=== PATIENT | female | born 1980 | race Caucasian/White ===

== ENCOUNTER 2018-06-19 07:43 | Day surgery (SDC) | payer OTHER, SELFPAY ==
[2018-06-18 10:40] VITALS: BMI 33.6
[2018-06-19] VITALS (8 sets, daily range): BP systolic 87–114; BP diastolic 56–77; PULSE 64–80; RESP 14–20; TEMP 36–36.3; O2SAT 16–100; BMI 33.5
--- NOTE | 2018-06-19 | DI.RAD.S_ITS ---
PROCEDURE: XR ANKLE LT 2V INDICATIONS: Lt ankle pain injection TECHNIQUE: 2 views of the ankle were acquired. COMPARISON: [facility], ANKLE 3 VIEWS LEFT, 11/29/2016, 9:24. [facility], ANKLE 3 VIEWS LEFT, 07/28/2017, 15:34. FINDINGS: Multiple fluoroscopic images of the left ankle demonstrate placement of a presumed spinal needle projected over the anterior tibiotalar joint. IMPRESSION: Localization with placement of spinal needle projected over the anterior aspect of the tibiotalar joint. Dictated by: Donell Rdz [facility] Interpreted: Homer Castaneda MD on 06/19/2018 at 13:57 Approved by: Homer Castaneda M.D. on 06/19/2018 at 14:06
--- NOTE | 2018-06-19 | DI.RAD.S_ITS ---
PROCEDURE: XR ANKLE RT 2V INDICATIONS: comparison for lt ankle injection TECHNIQUE: 2 views of the ankle were acquired. COMPARISON: None. FINDINGS: Bones: No fractures or dislocations. Ankle mortise is normally aligned. No suspicious bony lesions. Soft tissues: No tibiotalar joint effusion. Achilles tendon appears normal. IMPRESSION: No fracture. No osseous lesion. If symptoms and/or clinical suspicion for pathology persists, further assessment with repeat radiographs (7-10 days) or advanced imaging (e.g. CT, MRI or bone scan) may be helpful. Dictated by: Esme Galaviz MD, PhD on 06/19/2018 at 11:18 Approved by: Esme Galaviz MD, PhD on 06/19/2018 at 11:19
[2018-06-19] MEDS: LACTATED RINGERS 1,000 ML 42 ML IV (08:29)
--- NOTE | 2018-06-19 08:59 | PM.PREOP ---
Pre-operative Note Interval Note Pre-op Check: Yes History & Physical Reviewed by Physician, Yes Exam Performed and Yes History & Physical exam performed today by Physician Changes: No
--- NOTE | 2018-06-19 09:00 | PM.HP.1 ---
History of Present Illness Date Patient Seen: 06/19/18 Time Patient Seen: 09:00 Chief complaint: injection of ankle joint [id number] Narrative: Ms. Acevedo is a 38-year-old female with chronic left ankle and foot pain. She continues to have daily pain despite conservative treatment. She has medial and lateral ankle pain and instability. She has been using the brace still has pain and additionally she has neuritis along the superficial peroneal nerve distribution today. In the past she has been noted to have symptoms consistent with CPRS type 1. He has been unable to tolerate nerve medications. Additionally she has a osteochondral lesion of the talar dome. She presents to [facility] for steroid injection under anesthesia and stress examination under anesthesia in order to obtain not stress exams 4 L and I approval for surgery. Additionally patient had a previous steroid injection under anesthesia due to her extreme anxiety and provided temporary relief for her ankle pain. Patient History Medical History Blister (Acute) Complex regional pain syndrome type 1 of left lower extremity (Acute) Left ankle instability (Acute) Neuropathy of left superficial peroneal nerve (Acute) Osteochondral lesion of talar dome (Acute) Surgical History Status post open reduction with internal fixation (ORIF) of fracture of ankle (Acute) Family & Social History Family History: Reviewed 06/19/18 by Lacie Wallace MD Social History: household members family Tobacco & Substance use: Smoking Status Former smoker Substance Use Type does not use Meds Home Medications Medication Instructions Recorded Confirmed Type tramadol 50 mg PO Q6H PRN #0 12/06/17 06/18/18 History diazepam 5 mg PO BID 06/18/18 06/19/18 History ibuprofen 800 mg PO BID 06/18/18 06/18/18 History Allergies Allergy/AdvReac Type Severity Reaction Status Date / Time gabapentin [From NEURONTIN] Allergy Unknown Unverified 06/18/18 10:45 Iodinated Contrast- Oral and Allergy Unknown Verified 06/18/18 10:45 IV Dye meloxicam [MELOXICAM] Allergy Unknown Unverified 06/18/18 10:45 hydromorphone [From DILAUDID] AdvReac Unknown Unverified 06/19/18 08:17 Review of Systems Review of Systems All systems reviewed & are unremarkable except as noted in HPI and below Exam Vital Signs (past 8 hours): - 06/19/18 08:12 Temperature 97.3 F L Pulse Rate 80 Respiratory Rate 16 Blood Pressure 114/76 Pulse Oximetry 16 L Oxygen Delivery Method Room Air Narrative Exam Narrative: Alert oriented female no acute distress fully oriented. CV exam is regular rate and rhythm. Respiratory exam lungs clear to auscultation bilaterally. Abdomen soft. Skin no lesions today. Gait antalgic on the left. Left ankle no swelling erythema or signs or symptoms of infection. Normal alignment. +anterior drawer compared to contralateral side significant apprehension to stress testing. Soft calf. In her LEs along the distribution of the superficial peroneal nerve no pain along the peroneal tendons. Assessment & Plan Plan: Assessment/Plan Narrative: Osteochondral defect talus, left neuropathy left superficial peroneal nerve. Instability left ankle joint. Status post open reduction internal fixation left ankle fracture Plan today is to proceed with a tibiotalar steroid injection under anesthesia with additional exam under anesthesia to obtain stress x-rays for comparison to contralateral side for Talar tilt anterior drawer and external rotation stress testing the patient has been unable to tolerate her in the clinic setting. Patient understands and agrees with plan the risks benefits and alternatives to the procedure were discussed in detail the patient including risk for persistent pain and infection. Patient has provided informed consent for the surgical procedure as mentioned. Time Spent With Patient Time with patient: less than 15 minutes
--- NOTE | 2018-06-19 09:05 | P.HP_ITS ---
History of Present Illness Date Patient Seen: 06/19/18 Time Patient Seen: 09:00 Chief complaint: injection of ankle joint [id number] Narrative: Ms. Acevedo is a 38-year-old female with chronic left ankle and foot pain. She continues to have daily pain despite conservative treatment. She has medial and lateral ankle pain and instability. She has been using the brace still has pain and additionally she has neuritis along the superficial peroneal nerve distribution today. In the past she has been noted to have symptoms consistent with CPRS type 1. He has been unable to tolerate nerve medications. Additionally she has a osteochondral lesion of the talar dome. She presents to [facility] for steroid injection under anesthesia and stress examination under anesthesia in order to obtain not stress exams 4 L and I approval for surgery. Additionally patient had a previous steroid injection under anesthesia due to her extreme anxiety and provided temporary relief for her ankle pain. Patient History Medical History Blister (Acute) Complex regional pain syndrome type 1 of left lower extremity (Acute) Left ankle instability (Acute) Neuropathy of left superficial peroneal nerve (Acute) Osteochondral lesion of talar dome (Acute) Surgical History Status post open reduction with internal fixation (ORIF) of fracture of ankle ( Acute) Family & Social History Family History: Reviewed 06/19/18 by Lacie Wallace MD Social History: household members family Tobacco & Substance use: Smoking Status Former smoker Substance Use Type does not use Meds Home Medications Medication Instructions Recorded Confirmed Type tramadol 50 mg PO Q6H PRN #0 12/06/17 06/18/18 History diazepam 5 mg PO BID 06/18/18 06/19/18 History ibuprofen 800 mg PO BID 06/18/18 06/18/18 History Allergies Allergy/AdvReac Type Severity Reaction Status Date / Time gabapentin [From NEURONTIN] Allergy Unknown Unverified 06/18/18 10:45 Iodinated Contrast- Oral and Allergy Unknown Verified 06/18/18 10:45 IV Dye meloxicam [MELOXICAM] Allergy Unknown Unverified 06/18/18 10:45 hydromorphone [From DILAUDID] AdvReac Unknown Unverified 06/19/18 08:17 Review of Systems Review of Systems All systems reviewed & are unremarkable except as noted in HPI and below Exam Vital Signs (past 8 hours): - 06/19/18 08:12 Temperature 97.3 F L Pulse Rate 80 Respiratory Rate 16 Blood Pressure 114/76 Pulse Oximetry 16 L Oxygen Delivery Method Room Air Narrative Exam Narrative: Alert oriented female no acute distress fully oriented. CV exam is regular rate and rhythm. Respiratory exam lungs clear to auscultation bilaterally. Abdomen soft. Skin no lesions today. Gait antalgic on the left. Left ankle no swelling erythema or signs or symptoms of infection. Normal alignment. +anterior drawer compared to contralateral side significant apprehension to stress testing. Soft calf. In her LEs along the distribution of the superficial peroneal nerve no pain along the peroneal tendons. Assessment & Plan Plan: Assessment/Plan Narrative: Osteochondral defect talus, left neuropathy left superficial peroneal nerve. Instability left ankle joint. Status post open reduction internal fixation left ankle fracture Plan today is to proceed with a tibiotalar steroid injection under anesthesia with additional exam under anesthesia to obtain stress x-rays for comparison to contralateral side for Talar tilt anterior drawer and external rotation stress testing the patient has been unable to tolerate her in the clinic setting. Patient understands and agrees with plan the risks benefits and alternatives to the procedure were discussed in detail the patient including risk for persistent pain and infection. Patient has provided informed consent for the surgical procedure as mentioned. Time Spent With Patient Time with patient: less than 15 minutes
--- NOTE | 2018-06-19 09:42 | SUR.OPER ---
Supine on padded OR bed, head on pillow, arms secured on padded arm boards at <90 degrees abduction, legs uncrossed, safety belt at thigh, tape over blanket over lower legs.
[2018-06-19] MEDS: methylPREDNISolone acet DEPO 40 MG/ML VIAL IM (09:45)
[2018-06-19] MEDS: BUPIVACAINE 0.5% (PF) VIAL 30 ML INJ (10:07)
--- NOTE | 2018-06-19 11:29 | PM.OP.1 ---
Operative Date/Time/Diagnoses Date of procedure: 06/19/18 Time of procedure: 09:15 Pre-op diagnosis: Osteochondral lesion talar dome, left ICD 10 M 89.9 Status post open reduction internal fixation left ankle a CD 10 Z96.7 Left ankle instability Neuropathy left superficial peroneal nerve ICD 10 G 57.32 Post-op diagnosis: same Procedure & Clinicians Procedure: Ankle joint injection, left CPT code 32406 Fluoroscopic guidance for injection, left CPT codes 21721-73 Exam under anesthesia, ankle, left CPT 06732 Same procedure as scheduled: Yes Indications: The patient is a 38-year-old female with a past medical history significant for a left ankle fracture status post open reduction internal fixation and then later hardware removal. She has had chronic left ankle pain complicated by nerve pain and functional instability. She has undergone extensive physical therapy, desensitization and modalities, and oral nerve medications and still has not been able to resume her normal activities. We are in progress for obtaining L and I approval for surgery based on her most recent MRI that showed a talar osteochondral lesion that is increased in size and has adjacent bone marrow edema, additionally she has evidence of chronic lateral ankle ligament injury and concern for instability. She also has some irregularity in the area of her syndesmosis without kath diastasis on imaging. She had a previous tibiotalar injection under anesthesia by another provider 6 months ago that did provide her some relief. At this point she is looking for some temporary pain relief in order to bridge her to a more definitive surgery. Additionally she has been unable to tolerate stress testing or attempted injection in the office due to anxiety and pain. To provide pain relief and to better evaluate her instability, today, she has been scheduled for exam under anesthesia as well as ankle injection under anesthesia. The risks benefits alternatives to the procedure were discussed with the patient in detail and informed consent was signed in the office. These included but were not limited to persistent pain, infection, damage to nerves and vessels, and risks associated with general anesthesia. Surgeon: Lacie Wallace Click Yes if Unassisted: Yes Anesthesia Type: Sedation Operative Notes Findings: The patient's right and left ankles were examined under anesthesia for comparison. The right ankle was taken through normal AP, mortise, lateral image and stressed with tibiotalar, anterior drawer and external rotation stress testing without any evidence of joint space widening or instability. Additionally the patient's left ankle was taken under fluoroscopic examination with standard AP, mortise, lateral imaging and tibiotalar, anterior drawer, external rotation stress testing without any significant widening for indication of overt instability. Closure Type: not applicable Specimen(s): none sent Implants & Drains: None Blood products transfused: none Procedure in detail: The patient was seen in the preoperative area the site and side of surgery were marked. The informed consent was confirmed. Patient was then brought back to the operating room and placed supine on the operative table. Sedation was administered. A formal time-out was performed confirming the patient's side and site of procedure and presence of informed consent. All equipment was accounted for. Fluoroscopy unit was brought in and 1st the comparison images of the right ankle were obtained this was an AP, mortise, lateral image and then the right ankle was taken through stress testing with talar tilt and anterior drawer and external rotation stress testing. There was no notable widening or joint space laxity noted. Next the fluoroscopy unit was brought over the left ankle again standard x-rays were obtained in the AP, mortise, lateral images. Stress testing with talar tilt, anterior drawer, external rotation stress test were then undertaken. There was no evidence of gross instability or widening with these examinations compared to the contralateral side. Next the fluoroscopy was brought into the lateral position for the left ankle. Left ankle was prepped in the standard fashion with chlorhexidine. Utilizing sterile technique the location just medial to the tibialis anterior tendon at the joint line was isolated and the skin was anesthetized with 1% lidocaine using a 25 gauge needle. A 22 gauge needle was then advanced into the tibiotalar joint and penetration was confirmed on lateral fluoro imaging. The mixture of 2 cc of 40 mg Depo-Medrol and 4 cc of 0.5% Marcaine were injected. This flowed easily into the joint without resistance. The needle was then withdrawn and a Band-Aid placed. This completed the procedure. Instruments were accounted for. The patient was awoken from anesthesia and taken PACU in good condition. There were no known immediate complications from this procedure. Complications: none Condition: stable Disposition: PACU Plan for aftercare: Activity and weight-bearing as tolerated.
== END 2018-06-19 10:15 | disposition home or self-care (01) ==
PROVIDERS: PCP Physical Medicine & Rehabilitation; Visit Provider Orthopaedic Surgery Foot and Ankle Surgery
PROC: (CPT 20606; principal; 2018-06-19 09:15)
DX: M89.9 Disorder of bone, unspecified (principal); G57.32 Lesion of lateral popliteal nerve, left lower limb; M25.372 Other instability, left ankle; Z87.891 Personal history of nicotine dependence; G90.522 Complex regional pain syndrome I of left lower limb; Z96.7 Presence of other bone and tendon implants
CPT/HCPCS: 20606; 73600; 76000; J1030; J2250; J2405; J2704; J3010

== ENCOUNTER → 2018-07-17 11:10 | Outpatient (CLI) | payer OTHER, SELFPAY ==
[2018-07-17 12:23] LABS: Add Manual Diff / Slide Review NO; Basophils Percent Auto 0.4 % (0-2); Eosinophils Percent Auto 4.2 % (2-4); Hematocrit 39.3 % (36-46); Hemoglobin 13.8 g/dL (12.0-16.0); Lymphocytes Percent Auto 33.4 % (25-40); Mean Corpuscular Hemoglobin 34.4 PG (26-34); Mean Corpuscular Volume 98.3 fL (80-100); Monocytes Percent Auto 4.5 % (3-14); Neutrophils Absolute Auto 4700 /uL (3000-5900); Neutrophils Percent Auto 57.5 % (50-75); Platelet Count 234 X10^3/uL (150-400); Red Cell Distribution Width 13.2 % (11.6-14.8); White Blood Cell Count 8.2 X10^3/uL (4.5-11.0)
== END ==
PROVIDERS: Family Provider Physical Medicine & Rehabilitation; PCP Physical Medicine & Rehabilitation; Visit Provider Orthopaedic Surgery Foot and Ankle Surgery
DX: G57.32 Lesion of lateral popliteal nerve, left lower limb (principal); G90.522 Complex regional pain syndrome I of left lower limb; M89.9 Disorder of bone, unspecified; Z01.812 Encounter for preprocedural laboratory examination; Z01.818 Encounter for other preprocedural examination
CPT/HCPCS: 36415; 85025

== ENCOUNTER 2018-11-26 14:30 | Outpatient (RCR) | payer OTHER, SELFPAY ==
--- NOTE | 2018-10-28 11:45 | PT.OIE ---
Current Diagnoses Lesion of lateral popliteal nerve, left lower limb (10/28/18) Disorder of bone, unspecified (10/28/18) Past Medical History (Last Reviewed 06/19/18 @ 09:00 by Lacie Wallace MD) Blister (Acute) Complex regional pain syndrome type 1 of left lower extremity (Acute) Left ankle instability (Acute) Neuropathy of left superficial peroneal nerve (Acute) Osteochondral lesion of talar dome (Acute) Past Surgical History (Last Reviewed 06/19/18 @ 09:00 by Lacie Wallace MD) Status post open reduction with internal fixation (ORIF) of fracture of ankle (Acute) Provider Visit Care Team Role Provider Type Quynh Campbell MD Attending Provider Physician Primary Care Provider Specialty: Physical Medicine and Rehab Address: [address] [place] [address], [facility] Email: Physical Therapy Initial Evaluation PT-OP-A Visit Information Start: 10/28/18 10:44 Freq: Status: Active Protocol: Document 10/28/18 09:55 (Rec: 10/28/18 11:44 [email or web address]) Out-Patient Physical Therapy Visit Information Visit Information Visit Type Initial Evaluation Visit Note Pt presents to clinic with her walker boot and crutches. Visit Start Time 09:55 Visit Stop Time 10:45 Total Visit Minutes 50 Visit Number 11/01 Number of FISCAL ANALYST Visits 0 Evaluation Information Evaluation Date 10/28/18 PT-OP-B Current Condition Start: 10/28/18 10:44 Freq: Status: Active Protocol: Document 10/28/18 09:55 (Rec: 10/28/18 11:44 [email or web address]) Current Condition History of Current Condition Onset Date 07/28/18 Current Complaints lesion of L talar dome, difficulty in walking, generalized muscle weakness History of Current Condition Pt is a 38 yo female with extensive surgical history of her L ankle after an accident in December,. Pt stepped into a hole with her L foot at work and fx her ankle. Pt received internal fixation 2 weeks later after the accident followed by hardware removal in Aug, 2016. However, pt reports her ankle mobility and pain did not get any better even thought a year after surgeries. Pt states that she had regional pain syndrome throughout the year and she did pass out couple times because of that. CT scan from last years showed microfracture at her left ankle joint who then underwent her 3 rd surgery in Jul, 2018 for ankle debridement. She is now followed post op protocol who is at phase 3 (week 10+) progressive ROM and strengthening. Pt reports she has been using her bootwith crutches at all times since her last surgery, and scooter sometimes for community mobiltiy. Her pain has been decreased to 5/10 compared to her first 2 surgeries. Pt currently does ankle pump, ankle alphabet and brush densitisation around surgical site everyday. She also started to wean boot to slipper occasionally at home to focus on L foot FWB as tolerated. She noticed that she has drop foot during swing phase. Pt also states that she fell couple times over the past year during amb because her walker boot was heavy and she was not paying attention to obstacles sometimes. Pt also underwent gall bladder removal surgery last week at who c/o sigificant weakness and nausea feeling from time to time. Pt will have follow up with pcp and surgeon every 6 weeks (next appt in early Nov) Treatment Goals Patient/Caregiver Goals To be able to walk without walker boot To be able to walk without any assistive device regain full ankle ROM pain free for functional activities. Prior Functional Status Baseline Function- ADL's Independent Baseline Function- Mobility Independent Personal Factors Other Personal Factors That May Effect gall bladder removal sx in Therapy/Recovery 2018 PT-OP-C Subjective Start: 10/28/18 10:44 Freq: Status: Active Protocol: Document 10/28/18 09:55 (Rec: 10/28/18 11:44 [email or web address]) OP-PT Subjective Patient Comments Patient Comments My L ankle is very sensitive to touch and it feels numb around the surgical site. i also just had gall bladder removal last week so i've been feeling very sick. However, my ankle feels pretty good overall compared to the first 2 surgeries Patient Reported Progress Improving Patient Questionnaires Foot & Ankle Ability Measure- ADL and Sports FAAM-ADL Score 2 FAAM-ADL Impairment 80 to 99% Impaired (Score 1-15 ) FAAM-Sport Score 0 FAAM-Sport Impairment 100% Impaired (Score 0) Lower Extremity Functional Scale LEFS Score 14 LEFS Impairment 80 to 99% Impaired (Score 1-16 ) OP-PT Pain Assessment Pain Assessment Grid Paper Pain Assessment Grid Completed Yes Location L ankle Pain Location Details L fibular, ankle joint, dorsum of the foot Intensity 5 Scale Used Numeric (1 - 10) Description Acute Sharp Tender Frequency Constant Pain Aggravating Factors Activity Exercise Standing Walking Pain Alleviating Factors Inactivity PT-OP-F Manual Assessment Start: 10/28/18 10:44 Freq: Status: Active Protocol: Document 10/28/18 09:55 HH (Rec: 10/28/18 11:44 [email or web address]) Manual Assessments Soft Tissue Assessment Soft Tissue Mobility Assessment Significant tenderness to light touch along ant tib, peroneal and dorsum of the L foot (pt also c/o numbness and pain upon light touch to these area) significant tenderness to pressure at L calfs and achilles Joint Mobility Assessment Joint Mobility Assessment Hypomobile at L ankle PT-OP-G Mobility & Gait Start: 10/28/18 10:44 Freq: Status: Active Protocol: Document 10/28/18 09:55 HH (Rec: 10/28/18 11:44 [email or web address]) OP Gait Assessment Assistive Devices Assistive Device Axillary Crutches Gait Deviations General Gait Pattern Antalgic Factors Limiting Gait Function Factors Limiting Gait Function Decreased Activity Tolerance Decreased Strength Limited Range of Motion Pain PT-OP-K Range of Motion Start: 10/28/18 10:44 Freq: Status: Active Protocol: Document 10/28/18 09:55 HH (Rec: 10/28/18 11:44 [email or web address]) Ankle and Foot Goniometric Range of Motion Ankle and Foot Measured in Degrees Left Active Ankle/Foot ROM WFL No Testing Position Supine Dorsiflexion with Knee Flexed 0 Dorsiflexion with Knee Extended 0 Plantarflexion 20 Inversion 10 Eversion 7 Right Active Ankle/Foot ROM WFL Yes Testing Position Supine Dorsiflexion with Knee Flexed 20 Dorsiflexion with Knee Extended 15 Plantarflexion 65 Inversion 30 Eversion 15 Ankle and Foot ROM Limitations ROM Limitations Soft Tissue Tightness Muscle Weakness Pain PT-OP-M Strength Start: 10/28/18 10:44 Freq: Status: Active Protocol: Document 10/28/18 09:55 HH (Rec: 10/28/18 11:44 [email or web address]) Hip Strength Hip Manual Muscle Testing Right Flexion (L2) 4+ Good+ Extension (S1) 4+ Good+ Abduction 4+ Good+ Adduction 4+ Good+ External Rotation 4+ Good+ Internal Rotation 4+ Good+ Left Flexion (L2) 4- Good- Extension (S1) 3+ Fair+ Abduction 3+ Fair+ Adduction 4- Good- External Rotation 3+ Fair+ Internal Rotation 3+ Fair+ Knee Strength Knee Manual Muscle Testing Right Flexion (S2) 4+ Good+ Extension (L3) 4+ Good+ Left Flexion (S2) 4- Good- Extension (L3) 4- Good- Ankle/Foot Strength Ankle and Foot Manual Muscle Testing Left Dorsiflexion (L4) 2+ Poor+ Plantarflexion (S1) 3- Fair- Inversion 2+ Poor+ Eversion (S1) 2+ Poor+ PT-OP-Q Treatments Start: 10/28/18 10:44 Freq: Status: Active Protocol: Document 10/28/18 09:55 (Rec: 10/28/18 11:44 [email or web address]) Therapeutic Exercises Supine Exercises ankle pump with tennis ball under l calf Supine Exercise Name ankle pump Side left iso ankle INV and EV Side left Resistance isometric Reps/Minutes 10 secs hold x 3 for each direction Iso ankle DF and PF Side left Resistance isometric Reps/Minutes 10 secs hold x 3 for each direction Manual Therapy Treatment Soft Tissue Mobilization 2 Body Location L gastro and achilles Mobilization Type Myofascial Release Sustained Pressure Intensity/Depth Superficial Body Position Supine 1 Body Location L ant tib and peroneal Mobilization Type Myofascial Release Sustained Pressure Intensity/Depth Superficial Body Position Supine PT-OP-T Assessment and Plan Start: 10/28/18 10:44 Freq: Status: Active Protocol: Document 10/28/18 09:55 (Rec: 10/28/18 11:44 [email or web address]) Physical Therapy Assessment Rehab Potential Rehabilitation Potential Fair Evaluation Complexity Number of Personal Factors/Comorbidities 3 or More Number of Body Systems Impaired 3 Clinical Presentation at Evaluation Evolving Impairments Impairments Activity Tolerance Balance Functional Activities Functional Mobility Gait Pain Posture ROM Sensation Soft Tissue Mobility Strength Transfers Goals 4 Impairment Gait mechanics Real Estate Branch Manager Goal (LTG) to optimize gait efficiency ( step through) with heel strike pattern during initial contact without walker boot LTG Duration 8 weeks 3 Impairment Strength Short Term Goal (STG) Increase overall L LE strength by 1/2 MMT grade grossly to increase overall tolerance for functional activities. STG Duration 4 weeks [facility] Goal (LTG) Increase overall L LE strength by 1 MMT grade grossly to increase overall tolerance for functional activities. LTG Duration 8 weeks 2 Impairment ROM Short Term Goal (STG) Increase overall L ankle ROM by 5 degrees especially DF to facilitate foot clearance during swing phase STG Duration 4 weeks [employer] Goal (LTG) Increase overall L ankle ROM by 10 degrees especially DF to facilitate foot clearance during swing phase LTG Duration 8 weeks 1 Impairment pain Short Term Goal (STG) reduce L ankle pain during mobility by 2 points to increase her overall amb distance and functional activity tolerance STG Duration 4 weeks [employer] Goal (LTG) reduce L ankle pain during mobility by 4 points to increase her overall amb distance and functional activity tolerance LTG Duration 8 weeks Assessment Summary Assessment pt is a pleasant 38yo female with extensive surgical history for her L ankle. Pt is now post op >10 weeks (phase 3 progression strengthening) However, pt states she hasnt started her phase 2 rehab (ROM phase) yet along with overall [employer] fitness and cardio training (biking with walker boot) Pt presents to clinic with the use of walker boot and axillary crutches. Pt reports her pain 5/10 constantly with decreased regional pain syndrome. she states it has been better compared to her first 2 surgeries. Upon assessment, pt presents significant ROM loss (L DF -10) along with 3+ gross LE strength which significantly decrease her foot clearance for swing phase . Pt also reports significant tenderness and numbness to light touch along surgical site and dorsum of the foot. However, pt reports reduced tenderness and pain after manual therapy at L ant tib, gastro and ankle iso exercises . HEP is given including iso ankle hold for 10 secs, calf release with tennis ball, self massage an ant tib and calf with a dough roller. Pt will benefit from skilled PT to address aforementioned impairments by manual therapy, gait training, neuromuscular reeducation, ROM, L LE strengthening, aquatic therapy and modalities in order to return to PLOF. Physical Therapy Plan Frequency and Duration Frequency of Treatment 2x/Week Duration of Treatment 8 [id number] Plan of Care Start Date 10/28/18 Plan of Care End Date 12/26/18 Therapeutic Interventions Therapeutic Interventions Aquatic Therapy Balance Training Gait Training Home Exercise Program Joint Mobilizations Manual Therapy Neuromuscular Re-education Patient/Caregiver Education Self-Care/Home Management Sensory Integration Soft Tissue Mobilization Taping Therapeutic Activities Therapeutic Exercises Modalities Cold Pack/Ice Massage Electric Stimulation Ultrasound Next Visit Focus/Plan Next Note Type Treatment Note Next Visit Plan ROM as barry distal to proximal massage for edema, modalities for pain control as needed peroneal neural glide balance/ proprioception as barry NW[employer] fitness/ cadio, biking with one leg wean boot WB ex as barry
--- NOTE | 2018-11-04 16:23 | PT.OTN ---
Current Diagnoses Lesion of lateral popliteal nerve, left lower limb (11/04/18) Disorder of bone, unspecified (11/04/18) Physical Therapy Treatment Note PT-OP-A Visit Information Start: 10/28/18 10:44 Freq: Status: Active Protocol: Document 11/04/18 14:30 HH (Rec: 11/04/18 16:22 HH [email or web address]) Out-Patient Physical Therapy Visit Information Visit Information Visit Type Treatment Note Visit Start Time 14:30 Visit Stop Time 15:15 Total Visit Minutes 45 Visit Number 2/ Number of [employer] Visits 0 PT-OP-B Current Condition Start: 10/28/18 10:44 Freq: Status: Active Protocol: Document 10/28/18 09:55 HH (Rec: 10/28/18 11:44 HH [email or web address]) Current Condition History of Current Condition Onset Date 07/28/18 Current Complaints lesion of L talar dome, difficulty in walking, generalized muscle weakness History of Current Condition Pt is a 38 yo female with extensive surgical history of her L ankle after an accident in December,. Pt stepped into a hole with her L foot at work and fx her ankle. Pt received internal fixation 2 weeks later after the accident followed by hardware removal in Aug, 2016. However, pt reports her ankle mobility and pain did not get any better even thought a year after surgeries. Pt states that she had regional pain syndrome throughout the year and she did pass out couple times because of that. CT scan from last years showed microfracture at her left ankle joint who then underwent her 3 rd surgery in Jul, 2018 for ankle debridement. She is now followed post op protocol who is at phase 3 (week 10+) progressive ROM and strengthening. Pt reports she has been using her bootwith crutches at all times since her last surgery, and scooter sometimes for community mobiltiy. Her pain has been decreased to 5/10 compared to her first 2 surgeries. Pt currently does ankle pump, ankle alphabet and brush densitisation around surgical site everyday. She also started to wean boot to slipper occasionally at home to focus on L foot FWB as tolerated. She noticed that she has drop foot during swing phase. Pt also states that she fell couple times over the past year during amb because her walker boot was heavy and she was not paying attention to obstacles sometimes. Pt also underwent gall bladder removal surgery last week at [facility] who c/o sigificant weakness and nausea feeling from time to time. Pt will have follow up with pcp and surgeon every 6 weeks (next appt in early Nov) Treatment Goals Patient/Caregiver Goals To be able to walk without walker boot To be able to walk without any assistive device regain full ankle ROM pain free for functional activities. Prior Functional Status Baseline Function- ADL's Independent Baseline Function- Mobility Independent Personal Factors Other Personal Factors That May Effect gall bladder removal sx in Therapy/Recovery 2018 PT-OP-C Subjective Start: 10/28/18 10:44 Freq: Status: Active Protocol: Document 11/04/18 14:30 HH (Rec: 11/04/18 16:22 HH [email or web address]) OP-PT Subjective Patient Comments Patient Comments Pt is compliant to HEP. Pt started to use her air cast ankle brace prescribed by her surgeon since yesterday. Pt reports she didnt feel safe to use them consistently yet. Patient Reported Progress Improving PT-OP-F Manual Assessment Start: 10/28/18 10:44 Freq: Status: Active Protocol: Document 10/28/18 09:55 HH (Rec: 10/28/18 11:44 HH [email or web address]) Manual Assessments Soft Tissue Assessment Soft Tissue Mobility Assessment Significant tenderness to light touch along ant tib, peroneal and dorsum of the L foot (pt also c/o numbness and pain upon light touch to these area) significant tenderness to pressure at L calfs and achilles Joint Mobility Assessment Joint Mobility Assessment Hypomobile at L ankle PT-OP-G Mobility & Gait Start: 10/28/18 10:44 Freq: Status: Active Protocol: Document 10/28/18 09:55 HH (Rec: 10/28/18 11:44 HH [email or web address]) OP Gait Assessment Assistive Devices Assistive Device Axillary Crutches Gait Deviations General Gait Pattern Antalgic Factors Limiting Gait Function Factors Limiting Gait Function Decreased Activity Tolerance Decreased Strength Limited Range of Motion Pain PT-OP-K Range of Motion Start: 10/28/18 10:44 Freq: Status: Active Protocol: Document 10/28/18 09:55 HH (Rec: 10/28/18 11:44 HH [email or web address]) Ankle and Foot Goniometric Range of Motion Ankle and Foot Measured in Degrees Left Active Ankle/Foot ROM WFL No Testing Position Supine Dorsiflexion with Knee Flexed 0 Dorsiflexion with Knee Extended 0 Plantarflexion 20 Inversion 10 Eversion 7 Right Active Ankle/Foot ROM WFL Yes Testing Position Supine Dorsiflexion with Knee Flexed 20 Dorsiflexion with Knee Extended 15 Plantarflexion 65 Inversion 30 Eversion 15 Ankle and Foot ROM Limitations ROM Limitations Soft Tissue Tightness Muscle Weakness Pain PT-OP-M Strength Start: 10/28/18 10:44 Freq: Status: Active Protocol: Document 10/28/18 09:55 HH (Rec: 10/28/18 11:44 [email or web address]) Hip Strength Hip Manual Muscle Testing Right Flexion (L2) 4+ Good+ Extension (S1) 4+ Good+ Abduction 4+ Good+ Adduction 4+ Good+ External Rotation 4+ Good+ Internal Rotation 4+ Good+ Left Flexion (L2) 4- Good- Extension (S1) 3+ Fair+ Abduction 3+ Fair+ Adduction 4- Good- External Rotation 3+ Fair+ Internal Rotation 3+ Fair+ Knee Strength Knee Manual Muscle Testing Right Flexion (S2) 4+ Good+ Extension (L3) 4+ Good+ Left Flexion (S2) 4- Good- Extension (L3) 4- Good- Ankle/Foot Strength Ankle and Foot Manual Muscle Testing Left Dorsiflexion (L4) 2+ Poor+ Plantarflexion (S1) 3- Fair- Inversion 2+ Poor+ Eversion (S1) 2+ Poor+ PT-OP-Q Treatments Start: 10/28/18 10:44 Freq: Status: Active Protocol: Document 11/04/18 14:30 HH (Rec: 11/04/18 16:22 [email or web address]) Cardio Equipment Recumbent Bicycle Duration (Minutes) 5 Resistance level 7 Therapeutic Exercises Supine Exercises calf stretch Reps/Minutes 10 secs x 3 ankle pump with tennis ball under l calf Supine Exercise Name ankle pump Equipment Used foam roller used iso ankle INV and EV Side left Resistance isometric Reps/Minutes 10 secs hold x 3 for each direction Iso ankle DF and PF Side left Resistance isometric Reps/Minutes 10 secs hold x 3 for each direction Sitting Exercises seated posterior chain stretch Reps/Minutes 10 mins Comments L LE knee extension, DF, cervical flexion and trunk flexion towel hand cloth examiner Sitting Exercise Name towel hand cloth examiner on the floor Equipment Used towel Manual Therapy Treatment Soft Tissue Mobilization 2 Body Location L gastro and achilles Mobilization Type Myofascial Release Sustained Pressure Intensity/Depth Superficial Body Position Supine 1 Body Location L ant tib and peroneal Mobilization Type Myofascial Release Sustained Pressure Intensity/Depth Superficial Body Position Supine PT-OP-T Assessment and Plan Start: 10/28/18 10:44 Freq: Status: Active Protocol: Document 11/04/18 14:30 HH (Rec: 11/04/18 16:22 HH [email or web address]) Physical Therapy Assessment Assessment Summary Assessment Pt did not flinch today upon manual therapy at her L peroneal and anterior tib except lateral maleoli. She does c/o tenderness during STM at calf and achilles but barry well with passive stretch with STM together. Pt also barry tx well with recumbent bike with boot on today. She also stated her toes and foot hand cloth examiner control is better than her 2 nd surgery. Reviewed post op protocol with pt as well and recommended pt to amb without crutches as tolerated. Pt also states she will cont try to wean off with her boot and use her aircast ankle brace. Physical Therapy Plan Next Visit Focus/Plan Next Note Type Treatment Note Next Visit Plan ROM as barry manual therapy neural glide gait training without AD balance/ prop as barry cardio with boot on.
--- NOTE | 2018-11-07 11:45 | PT.OTN ---
Current Diagnoses Lesion of lateral popliteal nerve, left lower limb (11/07/18) Disorder of bone, unspecified (11/07/18) Physical Therapy Treatment Note PT-OP-A Visit Information Start: 10/28/18 10:44 Freq: Status: Active Protocol: Document 11/07/18 10:45 [facility] (Rec: 11/07/18 11:45 [facility] [id number]) Out-Patient Physical Therapy Visit Information Visit Information Visit Type Treatment Note Visit Start Time 10:35 Visit Stop Time 11:20 Total Visit Minutes 45 Visit Number 3/12 Number of NEURODIAGNOSTIC TECHNICIAN Visits 0 PT-OP-B Current Condition Start: 10/28/18 10:44 Freq: Status: Active Protocol: Document 10/28/18 09:55 HH (Rec: 10/28/18 11:44 HH [email or web address]) Current Condition History of Current Condition Onset Date 07/28/18 Current Complaints lesion of L talar dome, difficulty in walking, generalized muscle weakness History of Current Condition Pt is a 38 yo female with extensive surgical history of her L ankle after an accident in December,. Pt stepped into a hole with her L foot at work and fx her ankle. Pt received internal fixation 2 weeks later after the accident followed by hardware removal in Aug, 2016. However, pt reports her ankle mobility and pain did not get any better even thought a year after surgeries. Pt states that she had regional pain syndrome throughout the year and she did pass out couple times because of that. CT scan from last years showed microfracture at her left ankle joint who then underwent her 3 rd surgery in Jul, 2018 for ankle debridement. She is now followed post op protocol who is at phase 3 (week 10+) progressive ROM and strengthening. Pt reports she has been using her bootwith crutches at all times since her last surgery, and scooter sometimes for community mobiltiy. Her pain has been decreased to 5/10 compared to her first 2 surgeries. Pt currently does ankle pump, ankle alphabet and brush densitisation around surgical site everyday. She also started to wean boot to slipper occasionally at home to focus on L foot FWB as tolerated. She noticed that she has drop foot during swing phase. Pt also states that she fell couple times over the past year during amb because her walker boot was heavy and she was not paying attention to obstacles sometimes. Pt also underwent gall bladder removal surgery last week at who c/o sigificant weakness and nausea feeling from time to time. Pt will have follow up with pcp and surgeon every 6 weeks (next appt in early Nov) Treatment Goals Patient/Caregiver Goals To be able to walk without walker boot To be able to walk without any assistive device regain full ankle ROM pain free for functional activities. Prior Functional Status Baseline Function- ADL's Independent Baseline Function- Mobility Independent Personal Factors Other Personal Factors That May Effect gall bladder removal sx in Therapy/Recovery 2018 PT-OP-C Subjective Start: 10/28/18 10:44 Freq: Status: Active Protocol: Document 11/07/18 10:45 [facility] (Rec: 11/07/18 11:45 [facility] [id number]) OP-PT Subjective Patient Comments Patient Comments cleared her yesterday to be out of the boot at all times. Pt reports she is sore today. PT-OP-F Manual Assessment Start: 10/28/18 10:44 Freq: Status: Active Protocol: Document 10/28/18 09:55 (Rec: 10/28/18 11:44 [email or web address]) Manual Assessments Soft Tissue Assessment Soft Tissue Mobility Assessment Significant tenderness to light touch along ant tib, peroneal and dorsum of the L foot (pt also c/o numbness and pain upon light touch to these area) significant tenderness to pressure at L calfs and achilles Joint Mobility Assessment Joint Mobility Assessment Hypomobile at L ankle PT-OP-G Mobility & Gait Start: 10/28/18 10:44 Freq: Status: Active Protocol: Document 10/28/18 09:55 (Rec: 10/28/18 11:44 [email or web address]) OP Gait Assessment Assistive Devices Assistive Device Axillary Crutches Gait Deviations General Gait Pattern Antalgic Factors Limiting Gait Function Factors Limiting Gait Function Decreased Activity Tolerance Decreased Strength Limited Range of Motion Pain PT-OP-K Range of Motion Start: 10/28/18 10:44 Freq: Status: Active Protocol: Document 10/28/18 09:55 (Rec: 10/28/18 11:44 HH [email or web address]) Ankle and Foot Goniometric Range of Motion Ankle and Foot Measured in Degrees Left Active Ankle/Foot ROM WFL No Testing Position Supine Dorsiflexion with Knee Flexed 0 Dorsiflexion with Knee Extended 0 Plantarflexion 20 Inversion 10 Eversion 7 Right Active Ankle/Foot ROM WFL Yes Testing Position Supine Dorsiflexion with Knee Flexed 20 Dorsiflexion with Knee Extended 15 Plantarflexion 65 Inversion 30 Eversion 15 Ankle and Foot ROM Limitations ROM Limitations Soft Tissue Tightness Muscle Weakness Pain PT-OP-M Strength Start: 10/28/18 10:44 Freq: Status: Active Protocol: Document 10/28/18 09:55 HH (Rec: 10/28/18 11:44 [email or web address]) Hip Strength Hip Manual Muscle Testing Right Flexion (L2) 4+ Good+ Extension (S1) 4+ Good+ Abduction 4+ Good+ Adduction 4+ Good+ External Rotation 4+ Good+ Internal Rotation 4+ Good+ Left Flexion (L2) 4- Good- Extension (S1) 3+ Fair+ Abduction 3+ Fair+ Adduction 4- Good- External Rotation 3+ Fair+ Internal Rotation 3+ Fair+ Knee Strength Knee Manual Muscle Testing Right Flexion (S2) 4+ Good+ Extension (L3) 4+ Good+ Left Flexion (S2) 4- Good- Extension (L3) 4- Good- Ankle/Foot Strength Ankle and Foot Manual Muscle Testing Left Dorsiflexion (L4) 2+ Poor+ Plantarflexion (S1) 3- Fair- Inversion 2+ Poor+ Eversion (S1) 2+ Poor+ PT-OP-Q Treatments Start: 10/28/18 10:44 Freq: Status: Active Protocol: Document 11/07/18 10:45 [facility] (Rec: 11/07/18 11:45 [facility] [id number]) Cardio Equipment Recumbent Elliptical ([employer]) Duration (Minutes) 8 Resistance 2 Seat Position 8 Therapeutic Exercises Sitting Exercises stretches Sitting Exercise Name PF, inversion Side left Reps/Minutes 30 sec holds Standing Exercises NBOS Standing Exercise Name EC Side bilateral Reps/Minutes 30 sec gastroc & soleus stretches Standing Exercise Name gastroc/soleus stretch Reps/Minutes 45 sec holds Gait Training Gait Activity even steps Description even steps with cane Manual Therapy Treatment Soft Tissue Mobilization scar tissue Body Location scar tissue Mobilization Type Myofascial Release Comments 2 ant scars ant gaytan & ankle Body Location ant gaytan/ankle & foot Mobilization Type Myofascial Release Comments w/APS PT-OP-T Assessment and Plan Start: 10/28/18 10:44 Freq: Status: Active Protocol: Document 11/07/18 10:45 [facility] (Rec: 11/07/18 11:45 [facility] [id number]) Physical Therapy Assessment Goals 4 Impairment Gait mechanics Longterm Goal (LTG) to optimize gait efficiency ( step through) with heel strike pattern during initial contact without walker boot LTG Duration 8 weeks 3 Impairment Strength Short Term Goal (STG) Increase overall L LE strength by 1/2 MMT grade grossly to increase overall tolerance for functional activities. STG Duration 4 weeks Staff Certified Nurse Midwife Goal (LTG) Increase overall L LE strength by 1 MMT grade grossly to increase overall tolerance for functional activities. LTG Duration 8 weeks 2 Impairment ROM Short Term Goal (STG) Increase overall L ankle ROM by 5 degrees especially DF to facilitate foot clearance during swing phase STG Duration 4 weeks Staff Certified Nurse Midwife Goal (LTG) Increase overall L ankle ROM by 10 degrees especially DF to facilitate foot clearance during swing phase LTG Duration 8 weeks 1 Impairment pain Short Term Goal (STG) reduce L ankle pain during mobility by 2 points to increase her overall amb distance and functional activity tolerance STG Duration 4 weeks Staff Certified Nurse Midwife Goal (LTG) reduce L ankle pain during mobility by 4 points to increase her overall amb distance and functional activity tolerance LTG Duration 8 weeks Assessment Summary Assessment After scar tissue mobilization and MFR, pt was able to feel stretches in appropriate mm with stretches. Pt able to tolerate stretches without inc pain. Physical Therapy Plan Frequency and Duration Frequency of Treatment 2x/Week Duration of Treatment 8 [email or web address] Plan of Care Start Date 10/28/18 Plan of Care End Date 12/26/18 Next Visit Focus/Plan Next Note Type Treatment Note Next Visit Plan Advance ROM as tolerated, manual therapy for fascial and scar tissue release. balance as tolerated.
--- NOTE | 2018-11-11 13:03 | PT.OTN ---
Current Diagnoses Lesion of lateral popliteal nerve, left lower limb (11/11/18) Disorder of bone, unspecified (11/11/18) Physical Therapy Treatment Note PT-OP-A Visit Information Start: 10/28/18 10:44 Freq: Status: Active Protocol: Document 11/11/18 09:45 HH (Rec: 11/11/18 11:19 HH [email or web address]) Out-Patient Physical Therapy Visit Information Visit Information Visit Type Treatment Note Visit Start Time 09:45 Visit Stop Time 10:30 Total Visit Minutes 45 Visit Number 4/ PT-OP-B Current Condition Start: 10/28/18 10:44 Freq: Status: Active Protocol: Document 10/28/18 09:55 HH (Rec: 10/28/18 11:44 HH [email or web address]) Current Condition History of Current Condition Onset Date 07/28/18 Current Complaints lesion of L talar dome, difficulty in walking, generalized muscle weakness History of Current Condition Pt is a 38 yo female with extensive surgical history of her L ankle after an accident in December,. Pt stepped into a hole with her L foot at work and fx her ankle. Pt received internal fixation 2 weeks later after the accident followed by hardware removal in Aug, 2016. However, pt reports her ankle mobility and pain did not get any better even thought a year after surgeries. Pt states that she had regional pain syndrome throughout the year and she did pass out couple times because of that. CT scan from last years showed microfracture at her left ankle joint who then underwent her 3 rd surgery in Jul, 2018 for ankle debridement. She is now followed post op protocol who is at phase 3 (week 10+) progressive ROM and strengthening. Pt reports she has been using her bootwith crutches at all times since her last surgery, and scooter sometimes for community mobiltiy. Her pain has been decreased to 5/10 compared to her first 2 surgeries. Pt currently does ankle pump, ankle alphabet and brush densitisation around surgical site everyday. She also started to wean boot to slipper occasionally at home to focus on L foot FWB as tolerated. She noticed that she has drop foot during swing phase. Pt also states that she fell couple times over the past year during amb because her walker boot was heavy and she was not paying attention to obstacles sometimes. Pt also underwent gall bladder removal surgery last week at who c/o sigificant weakness and nausea feeling from time to time. Pt will have follow up with pcp and surgeon every 6 weeks (next appt in early Nov) Treatment Goals Patient/Caregiver Goals To be able to walk without walker boot To be able to walk without any assistive device regain full ankle ROM pain free for functional activities. Prior Functional Status Baseline Function- ADL's Independent Baseline Function- Mobility Independent Personal Factors Other Personal Factors That May Effect gall bladder removal sx in Therapy/Recovery 2018 PT-OP-C Subjective Start: 10/28/18 10:44 Freq: Status: Active Protocol: Document 11/11/18 09:45 HH (Rec: 11/11/18 11:19 HH [email or web address]) OP-PT Subjective Patient Comments Patient Comments 'I ve been walking with the cane since last week but it's getting sore at the end of the day. I ve been doing my HEP too especially the stretches. I almost fell yesterday because i dragged my toes. My pain is 4/10 most of the time. Patient Reported Progress Improving OP-PT Pain Assessment Location L ankle Intensity 4 Scale Used Numeric (1 - 10) Description With Movement Pain Aggravating Factors Walking PT-OP-F Manual Assessment Start: 10/28/18 10:44 Freq: Status: Active Protocol: Document 10/28/18 09:55 HH (Rec: 10/28/18 11:44 HH [email or web address]) Manual Assessments Soft Tissue Assessment Soft Tissue Mobility Assessment Significant tenderness to light touch along ant tib, peroneal and dorsum of the L foot (pt also c/o numbness and pain upon light touch to these area) significant tenderness to pressure at L calfs and achilles Joint Mobility Assessment Joint Mobility Assessment Hypomobile at L ankle PT-OP-G Mobility & Gait Start: 10/28/18 10:44 Freq: Status: Active Protocol: Document 10/28/18 09:55 HH (Rec: 10/28/18 11:44 HH [email or web address]) OP Gait Assessment Assistive Devices Assistive Device Axillary Crutches Gait Deviations General Gait Pattern Antalgic Factors Limiting Gait Function Factors Limiting Gait Function Decreased Activity Tolerance Decreased Strength Limited Range of Motion Pain PT-OP-K Range of Motion Start: 10/28/18 10:44 Freq: Status: Active Protocol: Document 10/28/18 09:55 HH (Rec: 10/28/18 11:44 [email or web address]) Ankle and Foot Goniometric Range of Motion Ankle and Foot Measured in Degrees Left Active Ankle/Foot ROM WFL No Testing Position Supine Dorsiflexion with Knee Flexed 0 Dorsiflexion with Knee Extended 0 Plantarflexion 20 Inversion 10 Eversion 7 Right Active Ankle/Foot ROM WFL Yes Testing Position Supine Dorsiflexion with Knee Flexed 20 Dorsiflexion with Knee Extended 15 Plantarflexion 65 Inversion 30 Eversion 15 Ankle and Foot ROM Limitations ROM Limitations Soft Tissue Tightness Muscle Weakness Pain PT-OP-M Strength Start: 10/28/18 10:44 Freq: Status: Active Protocol: Document 10/28/18 09:55 (Rec: 10/28/18 11:44 [email or web address]) Hip Strength Hip Manual Muscle Testing Right Flexion (L2) 4+ Good+ Extension (S1) 4+ Good+ Abduction 4+ Good+ Adduction 4+ Good+ External Rotation 4+ Good+ Internal Rotation 4+ Good+ Left Flexion (L2) 4- Good- Extension (S1) 3+ Fair+ Abduction 3+ Fair+ Adduction 4- Good- External Rotation 3+ Fair+ Internal Rotation 3+ Fair+ Knee Strength Knee Manual Muscle Testing Right Flexion (S2) 4+ Good+ Extension (L3) 4+ Good+ Left Flexion (S2) 4- Good- Extension (L3) 4- Good- Ankle/Foot Strength Ankle and Foot Manual Muscle Testing Left Dorsiflexion (L4) 2+ Poor+ Plantarflexion (S1) 3- Fair- Inversion 2+ Poor+ Eversion (S1) 2+ Poor+ PT-OP-Q Treatments Start: 10/28/18 10:44 Freq: Status: Active Protocol: Document 11/11/18 09:45 (Rec: 11/11/18 13:03 [email or web address]) Cardio Equipment Recumbent Stepper ([employer]) Duration (Minutes) 5 Therapeutic Exercises Supine Exercises toe general passenger agent Reps/Minutes 3 mins calf stretch Reps/Minutes 10 secs x 3 Standing Exercises L LE initial contact Equipment Used yoga cordelia and with sock only Comments to facilitate L knee extension and heel contact L LE weight acceptance Standing Exercise Name R step over Equipment Used yoga cordelia and with sock only Comments to facilitate single leg weight acceptance gastroc & soleus stretches Standing Exercise Name gastroc/soleus stretch Reps/Minutes 45 sec holds Gait Training Gait Activity step over with R LE Device Used grab bar Surface yoga cordelia Comments to facilitate single leg weight acceptance even steps Description even steps with cane Manual Therapy Treatment Soft Tissue Mobilization scar tissue Body Location scar tissue Mobilization Type Myofascial Release Comments 2 ant scars 2 Body Location L gastro and achilles Mobilization Type Myofascial Release Sustained Pressure Intensity/Depth Superficial Body Position Supine 1 Body Location L ant tib and peroneal Mobilization Type Myofascial Release Sustained Pressure Intensity/Depth Superficial Body Position Supine PT-OP-T Assessment and Plan Start: 10/28/18 10:44 Freq: Status: Active Protocol: Document 11/11/18 09:45 HH (Rec: 11/11/18 11:19 [email or web address]) Physical Therapy Assessment Assessment Summary Assessment Pt amb with a L moderate antalgic gait with significant l knee flexion during initial contact today upon assessment . pt barry tx very well with the use of yoga mat for gait training (for shock absorption ) and able to perform heel strike with knee extension. pt states i feel much more confortable for my knee and ankle when i walk now. Physical Therapy Plan Next Visit Focus/Plan Next Note Type Treatment Note Next Visit Plan reassess gait mechanics cont gait training with initial contact and single leg balance (can use yoga mat for reduce impact) and weight acceptance. ROM as barry balance training as barry
--- NOTE | 2018-11-14 11:25 | PT.OTN ---
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 Pt stepped into a hole with her L foot at work and fx her ankle. Pt received internal fixation 2 weeks later after the accident followed by hardware removal in Aug, 2016. However, pt reports her ankle mobility and pain did not get any better even thought a year after surgeries. Pt states that she had regional pain syndrome throughout the year and she did pass out couple times because of that. CT scan from last years showed microfracture at her left ankle joint who then underwent her 3 rd surgery in Jul, 2018 for ankle debridement. She is now followed post op protocol who is at phase 3 (week 10+) progressive ROM and strengthening. Pt reports she has been using her bootwith crutches at all times since her last surgery, and scooter sometimes for community mobiltiy. Her pain has been decreased to 5/10 compared to her first 2 surgeries. Pt currently does ankle pump, ankle alphabet and brush densitisation around surgical site everyday. She also started to wean boot to slipper occasionally at home to focus on L foot FWB as tolerated. She noticed that she has drop foot during swing phase. Pt also states that she fell couple times over the past year during amb because her walker boot was heavy and she was not paying attention to obstacles sometimes. Pt also underwent gall bladder removal surgery last week at who c/o sigificant weakness and nausea feeling from time to time. Pt will have follow up with pcp and surgeon every 6 weeks (next appt in early Nov) Treatment Goals Patient/Caregiver Goals To be able to walk without walker boot To be able to walk without any assistive device regain full ankle ROM pain free for functional activities. Prior Functional Status Baseline Function- ADL's Independent Baseline Function- Mobility Independent Personal Factors Other Personal Factors That May Effect gall bladder removal sx in Therapy/Recovery 2018 PT-OP-C Subjective Start: 10/28/18 10:44 Freq: Status: Active Protocol: Document 11/14/18 10:31 [facility] (Rec: 11/14/18 11:25 [facility] [id number]) OP-PT Subjective Patient Comments Patient Comments Pt reports compliance with exercises from PT last session . Reports she has been working on her gait and stretching PT-OP-F Manual Assessment Start: 10/28/18 10:44 Freq: Status: Active Protocol: Document 10/28/18 09:55 (Rec: 10/28/18 11:44 [email or web address]) Manual Assessments Soft Tissue Assessment Soft Tissue Mobility Assessment Significant tenderness to light touch along ant tib, peroneal and dorsum of the L foot (pt also c/o numbness and pain upon light touch to these area) significant tenderness to pressure at L calfs and achilles Joint Mobility Assessment Joint Mobility Assessment Hypomobile at L ankle PT-OP-G Mobility & Gait Start: 10/28/18 10:44 Freq: Status: Active Protocol: Document 10/28/18 09:55 (Rec: 10/28/18 11:44 [email or web address]) OP Gait Assessment Assistive Devices Assistive Device Axillary Crutches Gait Deviations General Gait Pattern Antalgic Factors Limiting Gait Function Factors Limiting Gait Function Decreased Activity Tolerance Decreased Strength Limited Range of Motion Pain PT-OP-K Range of Motion Start: 10/28/18 10:44 Freq: Status: Active Protocol: Document 10/28/18 09:55 (Rec: 10/28/18 11:44 [facility] [email or web address]) Ankle and Foot Goniometric Range of Motion Ankle and Foot Measured in Degrees Left Active Ankle/Foot ROM WFL No Testing Position Supine Dorsiflexion with Knee Flexed 0 Dorsiflexion with Knee Extended 0 Plantarflexion 20 Inversion 10 Eversion 7 Right Active Ankle/Foot ROM WFL Yes Testing Position Supine Dorsiflexion with Knee Flexed 20 Dorsiflexion with Knee Extended 15 Plantarflexion 65 Inversion 30 Eversion 15 Ankle and Foot ROM Limitations ROM Limitations Soft Tissue Tightness Muscle Weakness Pain PT-OP-M Strength Start: 10/28/18 10:44 Freq: Status: Active Protocol: Document 10/28/18 09:55 [facility] (Rec: 10/28/18 11:44 [email or web address]) Hip Strength Hip Manual Muscle Testing Right Flexion (L2) 4+ Good+ Extension (S1) 4+ Good+ Abduction 4+ Good+ Adduction 4+ Good+ External Rotation 4+ Good+ Internal Rotation 4+ Good+ Left Flexion (L2) 4- Good- Extension (S1) 3+ Fair+ Abduction 3+ Fair+ Adduction 4- Good- External Rotation 3+ Fair+ Internal Rotation 3+ Fair+ Knee Strength Knee Manual Muscle Testing Right Flexion (S2) 4+ Good+ Extension (L3) 4+ Good+ Left Flexion (S2) 4- Good- Extension (L3) 4- Good- Ankle/Foot Strength Ankle and Foot Manual Muscle Testing Left Dorsiflexion (L4) 2+ Poor+ Plantarflexion (S1) 3- Fair- Inversion 2+ Poor+ Eversion (S1) 2+ Poor+ PT-OP-Q Treatments Start: 10/28/18 10:44 Freq: Status: Active Protocol: Document 11/14/18 10:31 [facility] (Rec: 11/14/18 11:25 [facility] [id number]) Cardio Equipment Recumbent Stepper (Sci-Fit) Duration (Minutes) 5 Resistance 1.5 Seat Position 11 Therapeutic Exercises Supine Exercises 4 way tband ankle Supine Exercise Name inversion, eversion, PF, DF Side left Reps/Minutes 5-10 reps to fatigue Gait Training Gait Activity SLS Description SLS on L Comments w/alt hip flex for focus on stance phase even steps Description work on even steps w/fwd wt shift Comments w/ parallell bars on yoga mat to cane on ground Manual Therapy Treatment Soft Tissue Mobilization scar tissue Body Location scar tissue Mobilization Type Myofascial Release Comments 2 ant scars ant gaytan & ankle Body Location ant gaytan/ankle & foot Mobilization Type Myofascial Release Comments w/APS 2 Body Location L gastro and achilles Mobilization Type Myofascial Release Sustained Pressure Intensity/Depth Superficial Body Position Supine PT-OP-T Assessment and Plan Start: 10/28/18 10:44 Freq: Status: Active Protocol: Document 11/14/18 10:31 [facility] (Rec: 11/14/18 11:25 [facility] [id number]) Physical Therapy Assessment Goals 4 Impairment Gait mechanics Mainstreaming Facilitator Goal (LTG) to optimize gait efficiency ( step through) with heel strike pattern during initial contact without walker boot LTG Duration 8 weeks 3 Impairment Strength Short Term Goal (STG) Increase overall L LE strength by 1/2 MMT grade grossly to increase overall tolerance for functional activities. STG Duration 4 weeks Mcc Goal (LTG) Increase overall L LE strength by 1 MMT grade grossly to increase overall tolerance for functional activities. LTG Duration 8 weeks 2 Impairment ROM Short Term Goal (STG) Increase overall L ankle ROM by 5 degrees especially DF to facilitate foot clearance during swing phase STG Duration 4 weeks Mainstreaming Facilitator Goal (LTG) Increase overall L ankle ROM by 10 degrees especially DF to facilitate foot clearance during swing phase LTG Duration 8 weeks 1 Impairment pain Short Term Goal (STG) reduce L ankle pain during mobility by 2 points to increase her overall amb distance and functional activity tolerance STG Duration 4 weeks Mainstreaming Facilitator Goal (LTG) reduce L ankle pain during mobility by 4 points to increase her overall amb distance and functional activity tolerance LTG Duration 8 weeks Assessment Summary Assessment Pt improved with gait mechanics and noted less hip pain with gait when working on appropriate wt shift. She has significant dec mobility of achilles and calf. She had difficulty with tband exercises. Physical Therapy Plan Frequency and Duration Frequency of Treatment 2x/Week Duration of Treatment 8 weeeks Plan of Care Start Date 10/28/18 Plan of Care End Date 12/26/18 Next Visit Focus/Plan Next Note Type Treatment Note Next Visit Plan cont to work on wt acceptance and balance/strength training as tolerated
--- NOTE | 2018-11-18 10:34 | PT.OTN ---
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 Pt stepped into a hole with her L foot at work and fx her ankle. Pt received internal fixation 2 weeks later after the accident followed by hardware removal in Aug, 2016. However, pt reports her ankle mobility and pain did not get any better even thought a year after surgeries. Pt states that she had regional pain syndrome throughout the year and she did pass out couple times because of that. CT scan from last years showed microfracture at her left ankle joint who then underwent her 3 rd surgery in Jul, 2018 for ankle debridement. She is now followed post op protocol who is at phase 3 (week 10+) progressive ROM and strengthening. Pt reports she has been using her bootwith crutches at all times since her last surgery, and scooter sometimes for community mobiltiy. Her pain has been decreased to 5/10 compared to her first 2 surgeries. Pt currently does ankle pump, ankle alphabet and brush densitisation around surgical site everyday. She also started to wean boot to slipper occasionally at home to focus on L foot FWB as tolerated. She noticed that she has drop foot during swing phase. Pt also states that she fell couple times over the past year during amb because her walker boot was heavy and she was not paying attention to obstacles sometimes. Pt also underwent gall bladder removal surgery last week at who c/o sigificant weakness and nausea feeling from time to time. Pt will have follow up with pcp and surgeon every 6 weeks (next appt in early Nov) Treatment Goals Patient/Caregiver Goals To be able to walk without walker boot To be able to walk without any assistive device regain full ankle ROM pain free for functional activities. Prior Functional Status Baseline Function- ADL's Independent Baseline Function- Mobility Independent Personal Factors Other Personal Factors That May Effect gall bladder removal sx in Therapy/Recovery 2018 PT-OP-C Subjective Start: 10/28/18 10:44 Freq: Status: Active Protocol: Document 11/18/18 09:09 [facility] (Rec: 11/18/18 10:34 [facility] [id number]) OP-PT Subjective Patient Comments Patient Comments Reports hip is feeling better w/ walking more typical. Swelling notedw/ activity inc PT-OP-F Manual Assessment Start: 10/28/18 10:44 Freq: Status: Active Protocol: Document 10/28/18 09:55 (Rec: 10/28/18 11:44 [email or web address]) Manual Assessments Soft Tissue Assessment Soft Tissue Mobility Assessment Significant tenderness to light touch along ant tib, peroneal and dorsum of the L foot (pt also c/o numbness and pain upon light touch to these area) significant tenderness to pressure at L calfs and achilles Joint Mobility Assessment Joint Mobility Assessment Hypomobile at L ankle PT-OP-G Mobility & Gait Start: 10/28/18 10:44 Freq: Status: Active Protocol: Document 10/28/18 09:55 (Rec: 10/28/18 11:44 [email or web address]) OP Gait Assessment Assistive Devices Assistive Device Axillary Crutches Gait Deviations General Gait Pattern Antalgic Factors Limiting Gait Function Factors Limiting Gait Function Decreased Activity Tolerance Decreased Strength Limited Range of Motion Pain PT-OP-K Range of Motion Start: 10/28/18 10:44 Freq: Status: Active Protocol: Document 10/28/18 09:55 [facility] (Rec: 10/28/18 11:44 HH [email or web address]) Ankle and Foot Goniometric Range of Motion Ankle and Foot Measured in Degrees Left Active Ankle/Foot ROM WFL No Testing Position Supine Dorsiflexion with Knee Flexed 0 Dorsiflexion with Knee Extended 0 Plantarflexion 20 Inversion 10 Eversion 7 Right Active Ankle/Foot ROM WFL Yes Testing Position Supine Dorsiflexion with Knee Flexed 20 Dorsiflexion with Knee Extended 15 Plantarflexion 65 Inversion 30 Eversion 15 Ankle and Foot ROM Limitations ROM Limitations Soft Tissue Tightness Muscle Weakness Pain PT-OP-M Strength Start: 10/28/18 10:44 Freq: Status: Active Protocol: Document 10/28/18 09:55 [facility] (Rec: 10/28/18 11:44 [email or web address]) Hip Strength Hip Manual Muscle Testing Right Flexion (L2) 4+ Good+ Extension (S1) 4+ Good+ Abduction 4+ Good+ Adduction 4+ Good+ External Rotation 4+ Good+ Internal Rotation 4+ Good+ Left Flexion (L2) 4- Good- Extension (S1) 3+ Fair+ Abduction 3+ Fair+ Adduction 4- Good- External Rotation 3+ Fair+ Internal Rotation 3+ Fair+ Knee Strength Knee Manual Muscle Testing Right Flexion (S2) 4+ Good+ Extension (L3) 4+ Good+ Left Flexion (S2) 4- Good- Extension (L3) 4- Good- Ankle/Foot Strength Ankle and Foot Manual Muscle Testing Left Dorsiflexion (L4) 2+ Poor+ Plantarflexion (S1) 3- Fair- Inversion 2+ Poor+ Eversion (S1) 2+ Poor+ PT-OP-Q Treatments Start: 10/28/18 10:44 Freq: Status: Active Protocol: Document 11/18/18 09:09 [facility] (Rec: 11/18/18 10:34 [facility] [id number]) Cardio Equipment Recumbent Elliptical (Biodex) Duration (Minutes) 6 Resistance 1 Seat Position 7 Therapeutic Exercises Supine Exercises eccetric DF Supine Exercise Name PT push to full DF then eccentric lowering Reps/Minutes [address] ankle Supine Exercise Name inversion, eversion, PF, DF Side left Reps/Minutes 5-10 reps to fatigue Manual Therapy Treatment Soft Tissue Mobilization scar tissue Body Location scar tissue Mobilization Type Myofascial Release Comments 2 ant scars ant gaytan & ankle Body Location ant gaytan/ankle & foot Mobilization Type Myofascial Release Comments w/APS 2 Body Location L gastro and achilles Mobilization Type Myofascial Release Sustained Pressure Intensity/Depth Superficial Body Position Supine Neuro Re-Education Treatment Balance Activities fwdecember Details december Reps/Duration 4x20ft tandem Details tandem stance & walk PT-OP-T Assessment and Plan Start: 10/28/18 10:44 Freq: Status: Active Protocol: Document 11/18/18 09:09 [facility] (Rec: 11/18/18 10:34 [facility] [id number]) Physical Therapy Assessment Goals 4 Impairment Gait mechanics Assisted Goal (LTG) to optimize gait efficiency ( step through) with heel strike pattern during initial contact without walker boot LTG Duration 8 weeks 3 Impairment Strength Short Term Goal (STG) Increase overall L LE strength by 1/2 MMT grade grossly to increase overall tolerance for functional activities. STG Duration 4 weeks Centerless Grinder Tender Goal (LTG) Increase overall L LE strength by 1 MMT grade grossly to increase overall tolerance for functional activities. LTG Duration 8 weeks 2 Impairment ROM Short Term Goal (STG) Increase overall L ankle ROM by 5 degrees especially DF to facilitate foot clearance during swing phase STG Duration 4 weeks Assisted Goal (LTG) Increase overall L ankle ROM by 10 degrees especially DF to facilitate foot clearance during swing phase LTG Duration 8 weeks 1 Impairment pain Short Term Goal (STG) reduce L ankle pain during mobility by 2 points to increase her overall amb distance and functional activity tolerance STG Duration 4 weeks Assisted Goal (LTG) reduce L ankle pain during mobility by 4 points to increase her overall amb distance and functional activity tolerance LTG Duration 8 weeks Assessment Summary Assessment Pt able to get to neutral passively with DF but about 10 deg lacking actively. pt encouraged to cont to work DF strength. Overall, balance and gait improving but cont to have dec push off with gait. Physical Therapy Plan Frequency and Duration Frequency of Treatment 2x/Week Duration of Treatment 8 weeeks Plan of Care Start Date 10/28/18 Plan of Care End Date 12/26/18 Next Visit Focus/Plan Next Note Type Treatment Note Next Visit Plan balance board & advance balance/strength
--- NOTE | 2018-11-20 09:42 | PT.OTN ---
Current Diagnoses Lesion of lateral popliteal nerve, left lower limb (11/20/18) Disorder of bone, unspecified (11/20/18) Physical Therapy Treatment Note PT-OP-A Visit Information Start: 10/28/18 10:44 Freq: Status: Active Protocol: Document 11/20/18 08:44 LR (Rec: 11/20/18 09:42 [facility] [id number]) Out-Patient Physical Therapy Visit Information Visit Information Visit Type Treatment Note Visit Start Time 08:55 Visit Stop Time 09:40 Total Visit Minutes 45 Visit Number 05/01 Number of NEUROPHYSIOLOGICAL TECHNICIAN Visits 0 PT-OP-B Current Condition Start: 10/28/18 10:44 Freq: Status: Active Protocol: Document 10/28/18 09:55 HH (Rec: 10/28/18 11:44 HH [email or web address]) Current Condition History of Current Condition Onset Date 07/28/18 Current Complaints lesion of L talar dome, difficulty in walking, generalized muscle weakness History of Current Condition Pt is a 38 yo female with extensive surgical history of her L ankle after an accident in December,. Pt stepped into a hole with her L foot at work and fx her ankle. Pt received internal fixation 2 weeks later after the accident followed by hardware removal in Aug, 2016. However, pt reports her ankle mobility and pain did not get any better even thought a year after surgeries. Pt states that she had regional pain syndrome throughout the year and she did pass out couple times because of that. CT scan from last years showed microfracture at her left ankle joint who then underwent her 3 rd surgery in Jul, 2018 for ankle debridement. She is now followed post op protocol who is at phase 3 (week 10+) progressive ROM and strengthening. Pt reports she has been using her bootwith crutches at all times since her last surgery, and scooter sometimes for community mobiltiy. Her pain has been decreased to 5/10 compared to her first 2 surgeries. Pt currently does ankle pump, ankle alphabet and brush densitisation around surgical site everyday. She also started to wean boot to slipper occasionally at home to focus on L foot FWB as tolerated. She noticed that she has drop foot during swing phase. Pt also states that she fell couple times over the past year during amb because her walker boot was heavy and she was not paying attention to obstacles sometimes. Pt also underwent gall bladder removal surgery last week at who c/o sigificant weakness and nausea feeling from time to time. Pt will have follow up with pcp and surgeon every 6 weeks (next appt in early Nov) Treatment Goals Patient/Caregiver Goals To be able to walk without walker boot To be able to walk without any assistive device regain full ankle ROM pain free for functional activities. Prior Functional Status Baseline Function- ADL's Independent Baseline Function- Mobility Independent Personal Factors Other Personal Factors That May Effect gall bladder removal sx in Therapy/Recovery 2018 PT-OP-C Subjective Start: 10/28/18 10:44 Freq: Status: Active Protocol: Document 11/20/18 08:44 [facility] (Rec: 11/20/18 09:42 [facility] [id number]) OP-PT Subjective Patient Comments Patient Comments Pt reports some soreness in ankle after last session. Reports she focused on balance exercises & stretches at home d/t soreness and iced. PT-OP-F Manual Assessment Start: 10/28/18 10:44 Freq: Status: Active Protocol: Document 10/28/18 09:55 (Rec: 10/28/18 11:44 HH [email or web address]) Manual Assessments Soft Tissue Assessment Soft Tissue Mobility Assessment Significant tenderness to light touch along ant tib, peroneal and dorsum of the L foot (pt also c/o numbness and pain upon light touch to these area) significant tenderness to pressure at L calfs and achilles Joint Mobility Assessment Joint Mobility Assessment Hypomobile at L ankle PT-OP-G Mobility & Gait Start: 10/28/18 10:44 Freq: Status: Active Protocol: Document 10/28/18 09:55 (Rec: 10/28/18 11:44 HH [email or web address]) OP Gait Assessment Assistive Devices Assistive Device Axillary Crutches Gait Deviations General Gait Pattern Antalgic Factors Limiting Gait Function Factors Limiting Gait Function Decreased Activity Tolerance Decreased Strength Limited Range of Motion Pain PT-OP-K Range of Motion Start: 10/28/18 10:44 Freq: Status: Active Protocol: Document 10/28/18 09:55 HH (Rec: 10/28/18 11:44 HH [email or web address]) Ankle and Foot Goniometric Range of Motion Ankle and Foot Measured in Degrees Left Active Ankle/Foot ROM WFL No Testing Position Supine Dorsiflexion with Knee Flexed 0 Dorsiflexion with Knee Extended 0 Plantarflexion 20 Inversion 10 Eversion 7 Right Active Ankle/Foot ROM WFL Yes Testing Position Supine Dorsiflexion with Knee Flexed 20 Dorsiflexion with Knee Extended 15 Plantarflexion 65 Inversion 30 Eversion 15 Ankle and Foot ROM Limitations ROM Limitations Soft Tissue Tightness Muscle Weakness Pain PT-OP-M Strength Start: 10/28/18 10:44 Freq: Status: Active Protocol: Document 10/28/18 09:55 HH (Rec: 10/28/18 11:44 [email or web address]) Hip Strength Hip Manual Muscle Testing Right Flexion (L2) 4+ Good+ Extension (S1) 4+ Good+ Abduction 4+ Good+ Adduction 4+ Good+ External Rotation 4+ Good+ Internal Rotation 4+ Good+ Left Flexion (L2) 4- Good- Extension (S1) 3+ Fair+ Abduction 3+ Fair+ Adduction 4- Good- External Rotation 3+ Fair+ Internal Rotation 3+ Fair+ Knee Strength Knee Manual Muscle Testing Right Flexion (S2) 4+ Good+ Extension (L3) 4+ Good+ Left Flexion (S2) 4- Good- Extension (L3) 4- Good- Ankle/Foot Strength Ankle and Foot Manual Muscle Testing Left Dorsiflexion (L4) 2+ Poor+ Plantarflexion (S1) 3- Fair- Inversion 2+ Poor+ Eversion (S1) 2+ Poor+ PT-OP-Q Treatments Start: 10/28/18 10:44 Freq: Status: Active Protocol: Document 11/20/18 08:44 [facility] (Rec: 11/20/18 09:42 [facility] [id number]) Cardio Equipment Recumbent Elliptical (BiodGiftMe) Duration (Minutes) 6 Resistance 2 Seat Position 7 Therapeutic Exercises Standing Exercises DF Standing Exercise Name DF alt Side bilateral Reps/Minutes 20 Gait Training Gait Activity even steps Description work on even steps w/fwd wt shift Comments in mirror working on wt shift onto LLE with glute activation Manual Therapy Treatment Soft Tissue Mobilization scar tissue Body Location scar tissue Mobilization Type Myofascial Release Comments 2 ant scars 2 Body Location L gastro and achilles Mobilization Type Myofascial Release Sustained Pressure Intensity/Depth Superficial Body Position Supine Neuro Re-Education Treatment Balance Activities tilt board Details wt shifts & balancing Comments fwd & side; EC & head turns w/ balancing bosu Details standing balance Comments balance then fwd/back & side/ side wt shifts PT-OP-T Assessment and Plan Start: 10/28/18 10:44 Freq: Status: Active Protocol: Document 11/20/18 08:44 [facility] (Rec: 11/20/18 09:42 [facility] [id number]) Physical Therapy Assessment Goals 4 Impairment Gait mechanics Mcfp Goal (LTG) to optimize gait efficiency ( step through) with heel strike pattern during initial contact without walker boot LTG Duration 8 weeks 3 Impairment Strength Short Term Goal (STG) Increase overall L LE strength by 1/2 MMT grade grossly to increase overall tolerance for functional activities. STG Duration 4 weeks Sports Instructor Goal (LTG) Increase overall L LE strength by 1 MMT grade grossly to increase overall tolerance for functional activities. LTG Duration 8 weeks 2 Impairment ROM Short Term Goal (STG) Increase overall L ankle ROM by 5 degrees especially DF to facilitate foot clearance during swing phase STG Duration 4 weeks Sports Instructor Goal (LTG) Increase overall L ankle ROM by 10 degrees especially DF to facilitate foot clearance during swing phase LTG Duration 8 weeks 1 Impairment pain Short Term Goal (STG) reduce L ankle pain during mobility by 2 points to increase her overall amb distance and functional activity tolerance STG Duration 4 weeks Mcfp Goal (LTG) reduce L ankle pain during mobility by 4 points to increase her overall amb distance and functional activity tolerance LTG Duration 8 weeks Assessment Summary Assessment Improved gait mechanics with focus on wt shift and glute activation. pt had improved wt shift with cueing today. SHe was challenged by balance activities. Physical Therapy Plan Frequency and Duration Frequency of Treatment 2x/Week Duration of Treatment 8 [email or web address] Plan of Care Start Date 10/28/18 Plan of Care End Date 12/26/18 Next Visit Focus/Plan Next Note Type Treatment Note Next Visit Plan try shuttle balance and cont to work on gait mechanics
--- NOTE | 2018-11-26 15:43 | PT.OTN ---
Current Diagnoses Lesion of lateral popliteal nerve, left lower limb (11/26/18) Disorder of bone, unspecified (11/26/18) Physical Therapy Treatment Note PT-OP-A Visit Information Start: 10/28/18 10:44 Freq: Status: Active Protocol: Document 11/26/18 14:30 HH (Rec: 11/26/18 15:43 HH [email or web address]) Out-Patient Physical Therapy Visit Information Visit Information Visit Type Treatment Note Visit Note Requested for more visits Visit Start Time 14:30 Visit Stop Time 15:25 Total Visit Minutes 55 Visit Number 06/01 Number of MANAGER CARD Visits 0 PT-OP-B Current Condition Start: 10/28/18 10:44 Freq: Status: Active Protocol: Document 10/28/18 09:55 HH (Rec: 10/28/18 11:44 HH [email or web address]) Current Condition History of Current Condition Onset Date 07/28/18 Current Complaints lesion of L talar dome, difficulty in walking, generalized muscle weakness History of Current Condition Pt is a 38 yo female with extensive surgical history of her L ankle after an accident in December,. Pt stepped into a hole with her L foot at work and fx her ankle. Pt received internal fixation 2 weeks later after the accident followed by hardware removal in Aug, 2016. However, pt reports her ankle mobility and pain did not get any better even thought a year after surgeries. Pt states that she had regional pain syndrome throughout the year and she did pass out couple times because of that. CT scan from last years showed microfracture at her left ankle joint who then underwent her 3 rd surgery in Jul, 2018 for ankle debridement. She is now followed post op protocol who is at phase 3 (week 10+) progressive ROM and strengthening. Pt reports she has been using her bootwith crutches at all times since her last surgery, and scooter sometimes for community mobiltiy. Her pain has been decreased to 5/10 compared to her first 2 surgeries. Pt currently does ankle pump, ankle alphabet and brush densitisation around surgical site everyday. She also started to wean boot to slipper occasionally at home to focus on L foot FWB as tolerated. She noticed that she has drop foot during swing phase. Pt also states that she fell couple times over the past year during amb because her walker boot was heavy and she was not paying attention to obstacles sometimes. Pt also underwent gall bladder removal surgery last week at who c/o sigificant weakness and nausea feeling from time to time. Pt will have follow up with pcp and surgeon every 6 weeks (next appt in early Nov) Treatment Goals Patient/Caregiver Goals To be able to walk without walker boot To be able to walk without any assistive device regain full ankle ROM pain free for functional activities. Prior Functional Status Baseline Function- ADL's Independent Baseline Function- Mobility Independent Personal Factors Other Personal Factors That May Effect gall bladder removal sx in Therapy/Recovery 2018 PT-OP-C Subjective Start: 10/28/18 10:44 Freq: Status: Active Protocol: Document 11/26/18 14:30 HH (Rec: 11/26/18 15:43 HH [email or web address]) OP-PT Subjective Patient Comments Patient Comments Pt states she had a long walk the other day and she fell on her knee and L shoulder in that evening. Pt denies signfiicant injuries but presents bruises on L shoulder and L medial ankle. PT-OP-F Manual Assessment Start: 10/28/18 10:44 Freq: Status: Active Protocol: Document 10/28/18 09:55 HH (Rec: 10/28/18 11:44 HH [email or web address]) Manual Assessments Soft Tissue Assessment Soft Tissue Mobility Assessment Significant tenderness to light touch along ant tib, peroneal and dorsum of the L foot (pt also c/o numbness and pain upon light touch to these area) significant tenderness to pressure at L calfs and achilles Joint Mobility Assessment Joint Mobility Assessment Hypomobile at L ankle PT-OP-G Mobility & Gait Start: 10/28/18 10:44 Freq: Status: Active Protocol: Document 10/28/18 09:55 HH (Rec: 10/28/18 11:44 HH [email or web address]) OP Gait Assessment Assistive Devices Assistive Device Axillary Crutches Gait Deviations General Gait Pattern Antalgic Factors Limiting Gait Function Factors Limiting Gait Function Decreased Activity Tolerance Decreased Strength Limited Range of Motion Pain PT-OP-K Range of Motion Start: 10/28/18 10:44 Freq: Status: Active Protocol: Document 10/28/18 09:55 HH (Rec: 10/28/18 11:44 HH [email or web address]) Ankle and Foot Goniometric Range of Motion Ankle and Foot Measured in Degrees Left Active Ankle/Foot ROM WFL No Testing Position Supine Dorsiflexion with Knee Flexed 0 Dorsiflexion with Knee Extended 0 Plantarflexion 20 Inversion 10 Eversion 7 Right Active Ankle/Foot ROM WFL Yes Testing Position Supine Dorsiflexion with Knee Flexed 20 Dorsiflexion with Knee Extended 15 Plantarflexion 65 Inversion 30 Eversion 15 Ankle and Foot ROM Limitations ROM Limitations Soft Tissue Tightness Muscle Weakness Pain PT-OP-M Strength Start: 10/28/18 10:44 Freq: Status: Active Protocol: Document 10/28/18 09:55 HH (Rec: 10/28/18 11:44 [email or web address]) Hip Strength Hip Manual Muscle Testing Right Flexion (L2) 4+ Good+ Extension (S1) 4+ Good+ Abduction 4+ Good+ Adduction 4+ Good+ External Rotation 4+ Good+ Internal Rotation 4+ Good+ Left Flexion (L2) 4- Good- Extension (S1) 3+ Fair+ Abduction 3+ Fair+ Adduction 4- Good- External Rotation 3+ Fair+ Internal Rotation 3+ Fair+ Knee Strength Knee Manual Muscle Testing Right Flexion (S2) 4+ Good+ Extension (L3) 4+ Good+ Left Flexion (S2) 4- Good- Extension (L3) 4- Good- Ankle/Foot Strength Ankle and Foot Manual Muscle Testing Left Dorsiflexion (L4) 2+ Poor+ Plantarflexion (S1) 3- Fair- Inversion 2+ Poor+ Eversion (S1) 2+ Poor+ PT-OP-Q Treatments Start: 10/28/18 10:44 Freq: Status: Active Protocol: Document 11/26/18 14:30 HH (Rec: 11/26/18 15:43 [email or web address]) Therapeutic Exercises Supine Exercises eccetric DF Supine Exercise Name PT push to full DF then eccentric lowering Reps/Minutes 10 toe scrap metal burner Supine Exercise Name toe scrap metal burner with marble ball Reps/Minutes 5 mins calf stretch Supine Exercise Name standing calf stretch Comments anterior trunk lean Sitting Exercises seated ankle roll on rafia disk Equipment Used rafia disk Reps/Minutes 5 mins Standing Exercises tandem walk Standing Exercise Name heel toe pattern Reps/Minutes 10 x 2 L LE weight acceptance Standing Exercise Name R step over Comments with 3 sec SLS Gait Training Gait Activity SLS Comments SLS on >3 s , R step over with L heel on floor Manual Therapy Treatment Soft Tissue Mobilization scar tissue Body Location scar tissue Mobilization Type Myofascial Release Comments 2 ant scars ant gaytan & ankle Body Location ant gaytan/ankle & foot Mobilization Type Myofascial Release Comments w/APS 2 Body Location L gastro and achilles Mobilization Type Myofascial Release Sustained Pressure Intensity/Depth Superficial Body Position Supine Neuro Re-Education Treatment Balance Activities tandem Details tandem stance & walk PT-OP-T Assessment and Plan Start: 10/28/18 10:44 Freq: Status: Active Protocol: Document 11/26/18 14:30 HH (Rec: 11/26/18 15:43 HH [email or web address]) Physical Therapy Assessment Assessment Summary Assessment 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 However, pt reports a loud clicking sound with sharp shooting pain towards her fibular during active ankle DF at the beginning of the tx session. Pt states her pain and sensation stays throughout the entire session and she never experienced before. tx focused on soft tissue work , scar mob, gait training, and iso strengthening today. Physical Therapy Plan Next Visit Focus/Plan Next Note Type Treatment Note Next Visit Plan Reassess pt's pain during active DF try shuttle balance cont to work on SLS, L early heel raise.
--- NOTE | 2019-03-09 13:33 | PT.OPDS ---
Current Diagnoses Lesion of lateral popliteal nerve, left lower limb (11/26/18) Disorder of bone, unspecified (11/26/18) Provider Visit Care Team Role Provider Type Quynh Campbell MD Attending Provider Physician Primary Care Provider Specialty: Physical Medicine and Rehab Address: [address] [place] [address], [id number] Email: Visit Number Visit Number 06/01 Discharge Summary PT-OP-B Current Condition Start: 10/28/18 10:44 Freq: Status: Active Protocol: Document 10/28/18 09:55 HH (Rec: 10/28/18 11:44 HH [email or web address]) Current Condition History of Current Condition Onset Date 07/28/18 Current Complaints lesion of L talar dome, difficulty in walking, generalized muscle weakness History of Current Condition Pt is a 38 yo female with extensive surgical history of her L ankle after an accident in December,. Pt stepped into a hole with her L foot at work and fx her ankle. Pt received internal fixation 2 weeks later after the accident followed by hardware removal in Aug, 2016. However, pt reports her ankle mobility and pain did not get any better even thought a year after surgeries. Pt states that she had regional pain syndrome throughout the year and she did pass out couple times because of that. CT scan from last years showed microfracture at her left ankle joint who then underwent her 3 rd surgery in Jul, 2018 for ankle debridement. She is now followed post op protocol who is at phase 3 (week 10+) progressive ROM and strengthening. Pt reports she has been using her bootwith crutches at all times since her last surgery, and scooter sometimes for community mobiltiy. Her pain has been decreased to 5/10 compared to her first 2 surgeries. Pt currently does ankle pump, ankle alphabet and brush densitisation around surgical site everyday. She also started to wean boot to slipper occasionally at home to focus on L foot FWB as tolerated. She noticed that she has drop foot during swing phase. Pt also states that she fell couple times over the past year during amb because her walker boot was heavy and she was not paying attention to obstacles sometimes. Pt also underwent gall bladder removal surgery last week at who c/o sigificant weakness and nausea feeling from time to time. Pt will have follow up with pcp and surgeon every 6 weeks (next appt in early Nov) Treatment Goals Patient/Caregiver Goals To be able to walk without walker boot To be able to walk without any assistive device regain full ankle ROM pain free for functional activities. Prior Functional Status Baseline Function- ADL's Independent Baseline Function- Mobility Independent Personal Factors Other Personal Factors That May Effect gall bladder removal sx in Therapy/Recovery 2018 PT-OP-C Subjective Start: 10/28/18 10:44 Freq: Status: Active Protocol: Document 11/26/18 14:30 HH (Rec: 11/26/18 15:43 HH [email or web address]) OP-PT Subjective Patient Comments Patient Comments Pt states she had a long walk the other day and she fell on her knee and L shoulder in that evening. Pt denies signfiicant injuries but presents bruises on L shoulder and L medial ankle. PT-OP-F Manual Assessment Start: 10/28/18 10:44 Freq: Status: Active Protocol: Document 10/28/18 09:55 HH (Rec: 10/28/18 11:44 HH [email or web address]) Manual Assessments Soft Tissue Assessment Soft Tissue Mobility Assessment Significant tenderness to light touch along ant tib, peroneal and dorsum of the L foot (pt also c/o numbness and pain upon light touch to these area) significant tenderness to pressure at L calfs and achilles Joint Mobility Assessment Joint Mobility Assessment Hypomobile at L ankle PT-OP-G Mobility & Gait Start: 10/28/18 10:44 Freq: Status: Active Protocol: Document 10/28/18 09:55 HH (Rec: 10/28/18 11:44 HH [email or web address]) OP Gait Assessment Assistive Devices Assistive Device Axillary Crutches Gait Deviations General Gait Pattern Antalgic Factors Limiting Gait Function Factors Limiting Gait Function Decreased Activity Tolerance Decreased Strength Limited Range of Motion Pain PT-OP-K Range of Motion Start: 10/28/18 10:44 Freq: Status: Active Protocol: Document 10/28/18 09:55 HH (Rec: 10/28/18 11:44 HH [email or web address]) Ankle and Foot Goniometric Range of Motion Ankle and Foot Measured in Degrees Left Active Ankle/Foot ROM WFL No Testing Position Supine Dorsiflexion with Knee Flexed 0 Dorsiflexion with Knee Extended 0 Plantarflexion 20 Inversion 10 Eversion 7 Right Active Ankle/Foot ROM WFL Yes Testing Position Supine Dorsiflexion with Knee Flexed 20 Dorsiflexion with Knee Extended 15 Plantarflexion 65 Inversion 30 Eversion 15 Ankle and Foot ROM Limitations ROM Limitations Soft Tissue Tightness Muscle Weakness Pain PT-OP-M Strength Start: 10/28/18 10:44 Freq: Status: Active Protocol: Document 10/28/18 09:55 HH (Rec: 10/28/18 11:44 [email or web address]) Hip Strength Hip Manual Muscle Testing Right Flexion (L2) 4+ Good+ Extension (S1) 4+ Good+ Abduction 4+ Good+ Adduction 4+ Good+ External Rotation 4+ Good+ Internal Rotation 4+ Good+ Left Flexion (L2) 4- Good- Extension (S1) 3+ Fair+ Abduction 3+ Fair+ Adduction 4- Good- External Rotation 3+ Fair+ Internal Rotation 3+ Fair+ Knee Strength Knee Manual Muscle Testing Right Flexion (S2) 4+ Good+ Extension (L3) 4+ Good+ Left Flexion (S2) 4- Good- Extension (L3) 4- Good- Ankle/Foot Strength Ankle and Foot Manual Muscle Testing Left Dorsiflexion (L4) 2+ Poor+ Plantarflexion (S1) 3- Fair- Inversion 2+ Poor+ Eversion (S1) 2+ Poor+ PT-OP-T Assessment and Plan Start: 10/28/18 10:44 Freq: Status: Active Protocol: Document 03/09/19 13:30 HH (Rec: 03/09/19 13:33 [email or web address]) Physical Therapy Plan Discharge Physical Therapy Discharge Reasons Patient Request Discharge Comments Pt called and stated she had another fx during ankle DF in Nov. She let us know her doctor is requesting she go to a different office that has a specialty.
== END 2019-03-17 12:08 | disposition home or self-care (01) ==
LOC: PHYS 14:30
PROVIDERS: PCP Physical Medicine & Rehabilitation; Visit Provider Physical Medicine & Rehabilitation
DX: M89.9 Disorder of bone, unspecified (principal); G57.32 Lesion of lateral popliteal nerve, left lower limb
CPT/HCPCS: 97110; 97112; 97116; 97140; 97163

== ENCOUNTER 2020-08-02 09:55 | Emergency (ER) | payer MEDICAID, OTHER, SELFPAY ==
[2020-08-02 10:10] VITALS: BP 133/77; PULSE 82; RESP 16; TEMP 36.9; O2SAT 100; BMI 58.6
--- NOTE | 2020-08-02 10:45 | ED_ITS ---
HPI - Abdominal Pain General Chief Complaint: Abdominal Pain Stated Complaint: diaphragm Muscle spasms/lower right side pain Time Seen by Provider: 08/02/20 10:14 Source: patient Mode of arrival: Ambulatory History of Present Illness HPI narrative: Patient complains of sudden onset epigastric pain with nausea this morning. Radiated to mid back. Centrally. No recent illness cough cold congestion fever chills. No flank pain. No urinary complaints. Uncertain of status. History of cholecystectomy 1 and half years ago. Possible retained stone in the ductal system. Pain worse with eating. Worse with laying flat. Eat yogurt yesterday and hurt. Related Data Home Medications Medication Instructions Recorded Confirmed tramadol 50 mg PO Q6H PRN #0 12/06/17 06/18/18 diazepam 5 mg PO BID 06/18/18 06/19/18 ibuprofen 800 mg PO BID 06/18/18 06/18/18 Previous Rx's Medication Instructions Recorded dicyclomine 20 mg PO TID #20 tab 08/02/20 ondansetron 4 mg PO Q8H PRN #10 tab 08/02/20 sucralfate 1 gram PO QAC #20 tab 08/02/20 Allergies Allergy/AdvReac Type Severity Reaction Status Date / Time gabapentin [From NEURONTIN] Allergy Unknown Verified 08/02/20 10:33 Iodinated Contrast Media Allergy Unknown Verified 08/02/20 10:33 [Iodinated Contrast- Oral and IV Dye] meloxicam [MELOXICAM] Allergy Unknown Verified 08/02/20 10:33 hydromorphone [From DILAUDID] AdvReac Unknown Verified 08/02/20 10:33 Review of Systems Review of Systems Narrative: GENERAL: Denies chills, fatigue, malaise, fever, sweats. HEENT: Denies sinus pain, ear pain, sore throat, difficulty swallowing RESPIRATORY: Denies dyspnea, cough CARDIOVASCULAR: Denies chest pain, palpitations, edema, GASTROINTESTINAL: Complains of nausea, denies vomiting, complains abdominal pain, denies diarrhea, constipation, melena. : Denies dysuria, frequency, hematuria MUSCULOSKELETAL: denies muscle or bony pain SKIN: Denies rash, skin lesions NEUROLOGIC: Denies weakness, headache, numbness, change in speech, confusion PSYCHIATRIC: No SI or HI or hallucinations ROS Unobtainable: All systems reviewed & are unremarkable except as noted in HPI and below Patient History Medical History Blister (Acute) Complex regional pain syndrome type 1 of left lower extremity (Acute) Left ankle instability (Acute) Neuropathy of left superficial peroneal nerve (Acute) Osteochondral lesion of talar dome (Acute) Surgical History Status post open reduction with internal fixation (ORIF) of fracture of ankle (Acute) Social History household members: family Smoking Status: Former smoker Smoking Status: Former smoker alcohol intake frequency: 0-2 drinks per day Substance Use Type: does not use Exam Narrative Exam Narrative: GENERAL: patient appears stated age. Well-nourished, well- developed patient, in no distress, not toxic not dyspneic HEAD: Normocephalic. EYES: Pupils equal round and reactive. No scleral icterus. No injection no discharge ENT: Mucous membranes moist. No drooling no tongue elevation no trismus no malocclusion NECK: Trachea midline. Non tender CARDIOVASCULAR: Regular rate and rhythm without murmurs, gallops, or rubs. RESPIRATORY: Clear to auscultation. Breath sounds equal bilaterally. No wheezes, rales, or rhonchi. GASTROINTESTINAL: Abdomen soft, reproducible epigastric tenderness. No peritoneal signs. Bowel sounds present, nondistended. EXTREMITIES: No gross deformities. BACK: Nontender without deformity or crepitance. No flank tenderness. NEURO: AOx4. SKIN: Warm and dry PSYCH: Not anxious, is cooperative Initial Vital Signs Initial Vital Signs: Vital Signs Temperature 98.5 F 08/02/20 10:10 Pulse Rate 82 08/02/20 10:10 Respiratory Rate 16 08/02/20 10:10 Blood Pressure 133/77 08/02/20 10:10 Pulse Oximetry 100 08/02/20 10:10 Course Course Course Narrative: Patient had improvement while here. Reviewed results with her and cat. They agree for follow-up and may need endoscopy of the stomach. She does maintain a good diet. No spicy foods. Very little carbonated drinks. No fried foods Orders Ordered: ED Orders 08/02/20 10:30 EKG-12 Lead Stat 08/02/20 10:50 Complete Blood Count AUTO DIFF Stat Comprehensive Metabolic Panel Stat Lipase Stat 08/02/20 11:54 CT abdomen pelvis wo con Stat Discontinued Medications Al Hydrox/Mg Hydrox/Simethicone 20 ml/ Lidocaine HCl 15 ml 0 ml PO NOW ONE Stop: 08/02/20 11:53 Last Admin: 08/02/20 12:04 Dose: 20 ml Documented by: JOSE MANUEL Dicyclomine HCl (Bentyl) 20 mg PO NOW ONE Stop: 08/02/20 13:42 Last Admin: 08/02/20 13:49 Dose: 20 mg Documented by: JOSE MANUEL Sodium Chloride (Normal Saline 0.9%) 1,000 mls @ 1,000 mls/hr IV BOLUS ONE Stop: 08/02/20 11:47 Last Infusion: 08/02/20 12:06 Dose: 0 mls/hr Documented by: JOSE MANUEL Admin: 08/02/20 11:04 Dose: 1,000 mls/hr Documented by: JOSE MANUEL Metoclopramide HCl (Reglan) 10 mg IV NOW ONE Stop: 08/02/20 11:53 Last Admin: 08/02/20 12:04 Dose: 10 mg Documented by: JOSE MANUEL Morphine Sulfate (Morphine) 4 mg IV NOW ONE Stop: 08/02/20 10:58 Last Admin: 08/02/20 11:05 Dose: 4 mg Documented by: JOSE MANUEL Ondansetron HCl (Zofran) 4 mg IV NOW ONE Stop: 08/02/20 10:58 Last Admin: 08/02/20 11:05 Dose: 4 mg Documented by: JOSE MANUEL Pantoprazole Sodium (Protonix) 40 mg IV NOW ONE Stop: 08/02/20 11:01 Last Admin: 08/02/20 11:05 Dose: 40 mg Documented by: JOSE MANUEL Sucralfate (Carafate) 1 gm PO NOW ONE Stop: 08/02/20 13:42 Last Admin: 08/02/20 13:49 Dose: 1 gm Documented by: JOSE MANUEL Reevaluation(s) Reevaluation #1: Pain is improved. Results reviewed with patient and fiancee. They agree with treatment plan and follow-up. Time: 13:42 Vital Signs Vital signs: Vital Signs - 8 hr 08/02/20 12:48 Pulse Rate 59 L Respiratory Rate 16 Blood Pressure 112/61 Pulse Oximetry 99 MDM - Abdominal Pain Differential Diagnosis Differential diagnosis: Likely abdominal pain, acute appendicitis, calculus of kidney, diverticulitis, pancreatitis, small bowel obstruction and other (Cholecystitis) Lab Data Attestation: I reviewed the patient's lab results. Result diagrams: 08/02/20 10:50 08/02/20 10:50 Labs: Lab Results 08/02/20 08/02/20 Range/Units 10:50 10:50 WBC 8.3 (4.5-11.0) X10^3/uL RBC 4.08 (4.0-5.2) X10^6/uL Hgb 13.9 (12.0-16.0) g/dL Hct 40.3 (36-46) % MCV 98.8 (80-100) fL MCH 34.1 H (26-34) PG MCHC 34.6 (30-36) % RDW 13.1 (11.6-14.8) % Plt Count 187 (150-400) X10^3/uL Neut % (Auto) 63.7 (50-75) % Lymph % (Auto) 26.4 (25-40) % [place] % (Auto) 5.3 (3-14) % Eos % (Auto) 4.0 (2-4) % Baso % (Auto) 0.6 (0-2) % Neut # (Auto) 5300 (4778-6565) /uL Lymph # (Auto) 2200 (7356-3126) /uL [place] # (Auto) 400 (0-900) /uL Eos # (Auto) 300 (0-450) /uL Baso # (Auto) 0 (0-100) /uL Sodium 139 (137-145) mmol/L Potassium 4.1 (3.4-5.1) mmol/L Chloride 106 (98-107) mmol/L Carbon Dioxide 25 (22-32) mmol/L BUN 17 (7-17) mg/dL Creatinine 0.83 (0.52-1.04) mg/dL Estimated GFR > 60.0 (>60) mL/min BUN/Creatinine Ratio 20.5 (6-22) Glucose 89 (70-100) mg/dL Calcium 9.3 (8.4-10.2) mg/dL Total Bilirubin 0.6 (0.2-1.3) mg/dL AST 28 (14-36) IU/L ALT 19 (<35) IU/L Alkaline Phosphatase 79 (38-126) U/L Total Protein 7.6 (6.3-8.2) g/dL Albumin 4.6 (3.5-5.0) g/dL Globulin 3.0 (1.7-4.1) g/dL Albumin/Globulin Ratio 1.5 (1.0-2.8) Lipase 185 (23-300) U/L Point of care testing: Point of Care Testing Test Results Negative Urine Dip Bedside Urine Glucose Negative Bedside Urine Bilirubin - Negative Bedside Urine Ketone - Negative Urine Specific [place] 1.020 Bedside Urine Occult Blood - Negative Bedside Urine pH 6.0 Bedside Urine Protein - Negative Bedside Urine Urobilinogen - Negative Bedside Urine Nitrite - Negative Bedside Urine Leukocytes - Negative Esterase Imaging Data CT scan - abdomen/pelvis: Radiologist's Impression: [address] [address] [address] Scan Report Signed Patient: Derek Sloan CMR#: [id number] : 1980Acct:[id number] Age/Sex: 40 / FDate of Service: 08/02/20 Loc: ED Accession Number: [id number] Procedure: CT abdomen pelvis wo con Ordering Provider: Ant Melendez MD PROCEDURE: CT ABDOMEN PELVIS WO CON INDICATIONS: EPIGASTRIC PAIN TECHNIQUE: Noncontrast 5 mm thick sections acquired from the diaphragms to the symphysis. 5 mm coronal and sagittal reformats were then performed. For radiation dose reduction, the following was used: automated exposure control, adjustment of mA and/or kV according to patient size. COMPARISON: [facility], CT, IVP (ABD & PEL WWO CONTRAST), 06/15/2014, 8:27. FINDINGS: Image quality: Excellent. ABDOMEN: Lung bases: Lung bases are clear. Heart size is normal. Solid organs: Noncontrast evaluation of the liver demonstrates no focal hepatic lesions. Gallbladder is surgically absent. Pancreas is normal in contours without peripancreatic fat stranding or fluid collections. Spleen is normal in size. No adrenal nodules. There is moderate right hydronephrosis with a transition at the ureteropelvic junction. No calcified obstructing stone visualized. Findings are similar to slightly in creased from the prior study and suggestive of a UPJ obstruction. Peritoneum and bowel: Unenhanced bowel loops demonstrate normal wall thickness and caliber. The appendix is normal in appearance. There are few colonic diverticula without acute diverticulitis. No free fluid or air. Nodes and vessels: No retroperitoneal or mesenteric adenopathy by size criteria. Aorta and inferior vena cava are normal in caliber. Miscellaneous: No ventral hernias. PELVIS: Genitourinary: Bladder wall thickness is normal. Miscellaneous: No inguinal hernias or adenopathy. Bones: No suspicious bony lesions. No vertebral body compression fractures. IMPRESSION: 1. No definite acute intra-abdominal abnormality. 2. Colonic diverticulosis without acute diverticulitis. 3. Hydronephrosis of the right renal collecting system with a transition at the ureteropelvic junction. Findings are similar to slightly increased from the prior study and are again suggestive of a chronic UPJ obstruction. Dictated by: Freddy Daly M.D. on 08/02/2020 at 12:43 Approved by: Freddy Daly M.D. on 08/02/2020 at 12:47 ECG Data Attestation: I personally reviewed and interpreted this ECG as follows: Interpretation: Normal sinus rhythm, no ST elevation or depression MDM Narrative Medical decision making narrative: Appropriate for discharge. Improvement with medications here. Pain was reproducible epigastric area. This is likely not cardiac. Patient had discomfort prior to arrival with eating yogurt as well as lying flat. Discharge Plan Departure Patient Disposition: Home Clinical Impression: Abdominal pain Qualifiers: Abdominal location: epigastric Qualified Code(s): R10.13 - Epigastric pain Discharge Date/Time: 08/02/20 14:05 Instructions: DI for Gastritis, DI for Abdominal Pain-Adult Activity Restrictions/Additional Instructions: Call provided clinic referral line today for office recheck within a week. May need referral for endoscopy of the stomach. No fried fatty greasy food spicy foods. No carbonated drinks. Return if worse or if any questions or concerns. Prescriptions have been sent to the [facility] in [place]. Prescriptions: New ondansetron 4 mg tablet,disintegrating 4 mg PO Q8H PRN (Reason: nausea and vomiting) Qty: 10 RF: 0 dicyclomine 20 mg tablet 20 mg PO TID Qty: 20 RF: 0 sucralfate 1 gram tablet 1 gram PO QAC Qty: 20 RF: 0 No Action tramadol 50 MG tablet 50 mg PO Q6H PRN (Reason: Pain) Qty: 0 RF: 0 ibuprofen 800 mg Tablet 800 mg PO BID RF: 0 diazepam 5 mg Tablet 5 mg PO BID RF: 0 Referrals: [facility] [Outside]
[2020-08-02] MEDS: SODIUM CHLORIDE 0.9% 1,000 ML 1000 ML IV (11:04)
[2020-08-02] MEDS: PANTOPRAZOLE 40 MG VIAL IV (11:05)
[2020-08-02] MEDS: MORPHINE 4 MG/ML INJ IV (11:05)
[2020-08-02] MEDS: ONDANSETRON 4 MG/2 ML INJ IV (11:05)
[2020-08-02 11:22] LABS: Add Manual Diff / Slide Review NO; Basophils Absolute Auto 0 /uL (0-100); Basophils Percent Auto 0.6 % (0-2); Eosinophils Absolute Auto 300 /uL (0-450); Hematocrit 40.3 % (36-46); Hemoglobin 13.9 g/dL (12.0-16.0); Lymphocytes Absolute Auto 2200 /uL (1100-4500); Lymphocytes Percent Auto 26.4 % (25-40); Mean Corpuscular HGB Conc 34.6 % (30-36); Mean Corpuscular Hemoglobin 34.1 PG (26-34); Mean Corpuscular Volume 98.8 fL (80-100); Monocytes Absolute Auto 400 /uL (0-900); Monocytes Percent Auto 5.3 % (3-14); Neutrophils Absolute Auto 5300 /uL (1500-7000); Neutrophils Percent Auto 63.7 % (50-75); Platelet Count 187 X10^3/uL (150-400); Red Blood Cell Count 4.08 X10^6/uL (4.0-5.2); Red Cell Distribution Width 13.1 % (11.6-14.8); White Blood Cell Count 8.3 X10^3/uL (4.5-11.0)
[2020-08-02 11:31] LABS: Alanine Aminotransferase 19 IU/L (<35); Albumin 4.6 g/dL (3.5-5.0); Albumin Globulin Ratio 1.5 (1.0-2.8); Alkaline Phosphatase 79 U/L (38-126); Aspartate Aminotransferase 28 IU/L (14-36); BUN Creatinine Ratio 20.5 (6-22); Bilirubin Total 0.6 mg/dL (0.2-1.3); Blood Urea Nitrogen 17 mg/dL (7-17); Calcium 9.3 mg/dL (8.4-10.2); Carbon Dioxide 25 mmol/L (22-32); Chloride 106 mmol/L (98-107); Estimated Glomerular Filt Rate > 60.0 mL/min (>60); Glucose 89 mg/dL (70-100); HEMOLYSIS < 15 (0-50); Lipase 185 U/L (23-300); Potassium 4.1 mmol/L (3.4-5.1); Sodium 139 mmol/L (137-145); Total Protein 7.6 g/dL (6.3-8.2)
--- NOTE | 2020-08-02 11:54 | DI.CT.S_ITS ---
PROCEDURE: CT ABDOMEN PELVIS WO CON INDICATIONS: EPIGASTRIC PAIN TECHNIQUE: Noncontrast 5 mm thick sections acquired from the diaphragms to the symphysis. 5 mm coronal and sagittal reformats were then performed. For radiation dose reduction, the following was used: automated exposure control, adjustment of mA and/or kV according to patient size. COMPARISON: [facility], CT, IVP (ABD & PEL WWO CONTRAST), 06/15/2014, 8:27. FINDINGS: Image quality: Excellent. ABDOMEN: Lung bases: Lung bases are clear. Heart size is normal. Solid organs: Noncontrast evaluation of the liver demonstrates no focal hepatic lesions. Gallbladder is surgically absent. Pancreas is normal in contours without peripancreatic fat stranding or fluid collections. Spleen is normal in size. No adrenal nodules. There is moderate right hydronephrosis with a transition at the ureteropelvic junction. No calcified obstructing stone visualized. Findings are similar to slightly increased from the prior study and suggestive of a UPJ obstruction. Peritoneum and bowel: Unenhanced bowel loops demonstrate normal wall thickness and caliber. The appendix is normal in appearance. There are few colonic diverticula without acute diverticulitis. No free fluid or air. Nodes and vessels: No retroperitoneal or mesenteric adenopathy by size criteria. Aorta and inferior vena cava are normal in caliber. Miscellaneous: No ventral hernias. PELVIS: Genitourinary: Bladder wall thickness is normal. Miscellaneous: No inguinal hernias or adenopathy. Bones: No suspicious bony lesions. No vertebral body compression fractures. IMPRESSION: 1. No definite acute intra-abdominal abnormality. 2. Colonic diverticulosis without acute diverticulitis. 3. Hydronephrosis of the right renal collecting system with a transition at the ureteropelvic junction. Findings are similar to slightly increased from the prior study and are again suggestive of a chronic UPJ obstruction. Dictated by: Freddy Daly M.D. on 08/02/2020 at 12:43 Approved by: Freddy Daly M.D. on 08/02/2020 at 12:47
[2020-08-02] MEDS: METOCLOPRAMIDE 10 MG/2 ML INJ IV (12:04)
[2020-08-02] MEDS: MAG HYDROX/ALUMINUM/SIMETH SUS 20 ML, LIDOCAINE VISCOUS 2% 15 ML PO (12:04)
[2020-08-02 12:48] VITALS: BP 112/61; PULSE 59; RESP 16; O2SAT 99
[2020-08-02] MEDS: SUCRALFATE 1 GM TABLET PO (13:49)
[2020-08-02] MEDS: DICYCLOMINE 10 MG CAPSULE 20 MG PO (13:49)
== END 2020-08-02 14:05 | disposition home or self-care (01) ==
PROVIDERS: Emergency Provider Emergency Medicine
DX: R10.13 Epigastric pain (principal); R11.2 Nausea with vomiting, unspecified
CPT/HCPCS: 36415; 74176; 80053; 81003; 81025; 83690; 85025; 93005; 96361; 96374; 96375; 99284; C9113; J2270; J2405; J2765

== ENCOUNTER 2023-05-06 13:25 | Emergency (ER) | payer OTHER, MEDICAID, SELFPAY ==
[2023-05-06 13:34] VITALS: BP 144/92; PULSE 98; RESP 18; TEMP 36.2; O2SAT 97; BMI 37.3
[2023-05-06 14:34] VITALS: BP 132/80
[2023-05-06 14:54] LABS: Add Manual Diff / Slide Review NO; Basophils Absolute Auto 100 /uL (0-100); Basophils Percent Auto 0.9 % (0-2); Eosinophils Absolute Auto 700 /uL (0-450); Eosinophils Percent Auto 10.4 % (2-4); Hematocrit 37.6 % (36-46); Hemoglobin 12.7 g/dL (12.0-16.0); Lymphocytes Absolute Auto 2600 /uL (1100-4500); Lymphocytes Percent Auto 37.8 % (25-40); Mean Corpuscular HGB Conc 33.7 % (30-36); Monocytes Absolute Auto 300 /uL (0-900); Monocytes Percent Auto 4.7 % (3-14); Neutrophils Absolute Auto 3200 /uL (1500-7000); Neutrophils Percent Auto 46.2 % (50-75); Platelet Count 283 X10^3/uL (150-400); Red Blood Cell Count 4.09 X10^6/uL (4.0-5.2); Red Cell Distribution Width 13.9 % (11.6-14.8); White Blood Cell Count 6.9 X10^3/uL (4.5-11.0)
[2023-05-06 15:05] LABS: Alanine Aminotransferase 59 IU/L (<35); Albumin 4.5 g/dL (3.5-5.0); Albumin Globulin Ratio 1.4 (1.0-2.8); Alkaline Phosphatase 111 U/L (38-126); Aspartate Aminotransferase 34 IU/L (14-36); BUN Creatinine Ratio 19.1 (6-22); Bilirubin Total 0.4 mg/dL (0.2-1.3); Blood Urea Nitrogen 13 mg/dL (7-17); Calcium 9.3 mg/dL (8.4-10.2); Carbon Dioxide 29 mmol/L (22-32); Chloride 101 mmol/L (98-107); Estimated Glomerular Filt Rate > 60 mL/min (>60); Globulin 3.2 g/dL (1.7-4.1); Glucose 105 mg/dL (70-100); HEMOLYSIS < 15 (0-50); Magnesium 1.8 mg/dL (1.6-2.3); Potassium 3.9 mmol/L (3.4-5.1); Sodium 138 mmol/L (137-145); Total Protein 7.7 g/dL (6.3-8.2)
[2023-05-06 15:08] LABS: Appearance Urine UA CLEAR; Bilirubin Urine UA NEGATIVE (NEGATIVE); Color Urine UA YELLOW; Glucose Urine UA NEGATIVE (Negative); Ketones Urine UA NEGATIVE (NEGATIVE); Leukocyte Esterase Urine UA NEGATIVE (NEGATIVE); Nitrite Urine UA NEGATIVE (Negative); Occult Blood Urine UA NEGATIVE (Negative); Protein Urine UA NEGATIVE (Negative); Urobilinogen Urine UA 0.2 E.U./dL (0.2)
--- NOTE | 2023-05-06 15:19 | PC.NURSE ---
Called @ 1519. Not in WR.
[2023-05-06 15:20] LABS: Bacteria Urine None Seen; Culture Indicated Urine Cult Not Indicated; RBC Urine 0-1/HPF (0-5/HPF); Squamous Epithelial Cell Urine 0-1 /HPF (0-5/HPF); WBC Urine 0-1/HPF (0-5/HPF)
[2023-05-06 16:00] VITALS: BP 126/44; PULSE 85; RESP 14; O2SAT 99
--- NOTE | 2023-05-06 16:29 | ED_ITS ---
HPI - Headache General Chief Complaint: Headache Stated Complaint: preclamsia Time Seen by Provider: 05/06/23 16:28 Mode of arrival: Ambulatory History of Present Illness HPI Narrative: Patient is a 42-year-old female status post 3 weeks. She reports that she had preeclampsia causing early at 37 week. She reports that she had an epidural she is had a headache basically for the last 3 weeks. She sensitive to light did take Tylenol and ibuprofen and it is not helping. She has consistent headache today no fever or neck pain. She reports that she called her OBGYN technology sales representative who recommended she go to an ER for further evaluation. She is noted to be mildly hypertensive with blood pressure 144/92. Shows reports that she had gestational diabetes gestational hypertension but is not on any blood pressure medications Related Data Home Medications Medication Instructions Recorded Confirmed tramadol 50 mg tablet 50 mg PO Q6H PRN Pain ##0 12/06/17 06/18/18 diazepam 5 mg tablet 5 mg PO BID 06/18/18 06/19/18 ibuprofen 800 mg tablet 800 mg PO BID 06/18/18 06/18/18 Previous Rx's Medication Instructions Recorded dicyclomine 20 mg tablet 20 mg PO TID #20 tabs 08/02/20 ondansetron 4 mg disintegrating 4 mg PO Q8H PRN nausea and 08/02/20 tablet vomiting #10 tabs sucralfate 1 gram tablet 1 gram PO QAC #20 tabs 08/02/20 Allergies Allergy/AdvReac Type Severity Reaction Status Date / Time gabapentin [From NEURONTIN] Allergy Unknown Verified 08/02/20 10:33 Iodinated Contrast Media Allergy Unknown Verified 08/02/20 10:33 [Iodinated Contrast- Oral and IV Dye] meloxicam [MELOXICAM] Allergy Unknown Verified 08/02/20 10:33 hydromorphone [From DILAUDID] AdvReac Unknown Verified 08/02/20 10:33 Review of Systems Review of Systems ROS Unobtainable: All systems reviewed & are unremarkable except as noted in HPI and below Patient History Medical History (Updated 05/06/23 @ 17:24 by Jen Bowie DO) Blister Complex regional pain syndrome type 1 of left lower extremity Left ankle instability 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 Surgical History Status post open reduction with internal fixation (ORIF) of fracture of ankle Social History household members: family Smoking Status: Former smoker Smoking Status: Former smoker alcohol intake frequency: 0-2 drinks per day Substance Use Type: does not use Exam Initial Vital Signs Initial Vital Signs: Vital Signs Temperature 97.1 F L 05/06/23 13:34 Pulse Rate 98 H 05/06/23 13:34 Respiratory Rate 18 05/06/23 13:34 Blood Pressure 144/92 H 05/06/23 13:34 Pulse Oximetry 97 05/06/23 13:34 Oxygen Delivery Method Room Air 05/06/23 13:34 GENERAL: Alert well-appearing 42-year-old female wearing sunglasses HEENT: Head atraumatic,EOMI, pupils reactive, face symmetric, moist mucous membranes, neck is supple without meningeal signs CARDIOVASCULAR: Regular rate and rhythm without murmurs, rubs or gallops. RESPIRATORY: Breath sounds equal bilaterally, no wheezes rales or rhonchi. ABDOMEN: Soft, nontender. Normoactive bowel sounds all 4 quadrants. No guarding or rebound. EXTREMITIES: Normal range of motion, no clubbing or edema. Neurovascularly intact NEUROLOGICAL: Alert and oriented x4. 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 Course Orders Ordered: ED Orders 05/06/23 14:50 CBC Auto Diff [Complete Blood Count AUTO DIFF] Stat CMP [Comprehensive Metabolic Panel] Stat MAG [Magnesium] Stat 05/06/23 14:52 Urinalysis and Microscopic Stat Discontinued Medications Sodium Chloride (Normal Saline 0.9%) 1,000 mls @ 1,000 mls/hr IV BOLUS ONE Stop: 05/06/23 17:44 Last Infusion: 05/06/23 17:44 Dose: 0 mls/hr Documented By: Admin: 05/06/23 17:01 Dose: 1,000 mls/hr Documented By: CARLEE Ketorolac Tromethamine (Ketorolac 30 Mg/Ml Vial) 15 mg IV NOW ONE Stop: 05/06/23 16:46 Last Admin: 05/06/23 17:01 Dose: 15 mg Documented By: KLS Ondansetron HCl (Ondansetron 4 Mg/2 Ml Inj) 4 mg IV NOW ONE Stop: 05/06/23 16:46 Last Admin: 05/06/23 17:01 Dose: 4 mg Documented By: CARLEE Vital Signs Vital signs: Vital Signs - 8 hr 05/06/23 13:34 05/06/23 14:34 05/06/23 16:00 Temperature 97.1 F L Pulse Rate 98 H 85 Respiratory Rate 18 14 Blood Pressure 144/92 H 132/80 126/44 L Pulse Oximetry 97 99 Oxygen Delivery Method Room Air Room Air 05/06/23 16:30 05/06/23 17:18 Temperature Pulse Rate 83 79 Respiratory Rate 14 14 Blood Pressure 121/76 115/80 Pulse Oximetry 100 Oxygen Delivery Method Room Air MDM - Headache Lab Data 05/06/23 14:50 05/06/23 14:50 Labs: Lab Results 05/06/23 05/06/23 05/06/23 Range/Units 14:50 14:50 14:52 WBC 6.9 (4.5-11.0) X10^3/uL RBC 4.09 (4.0-5.2) X10^6/uL Hgb 12.7 (12.0-16.0) g/dL Hct 37.6 (36-46) % MCV 92.0 (80-100) fL MCH 31.0 (26-34) PG MCHC 33.7 (30-36) % RDW 13.9 (11.6-14.8) % Plt Count 283 (150-400) X10^3/uL Neut % (Auto) 46.2 L (50-75) % Lymph % (Auto) 37.8 (25-40) % [place] % (Auto) 4.7 (3-14) % Eos % (Auto) 10.4 H (2-4) % Baso % (Auto) 0.9 (0-2) % Neut # (Auto) 3200 (9602-6415) /uL Lymph # (Auto) 2600 (3566-6202) /uL [place] # (Auto) 300 (0-900) /uL Eos # (Auto) 700 H (0-450) /uL Baso # (Auto) 100 (0-100) /uL Sodium 138 (137-145) mmol/L Potassium 3.9 (3.4-5.1) mmol/L Chloride 101 (98-107) mmol/L Carbon Dioxide 29 (22-32) mmol/L BUN 13 (7-17) mg/dL Creatinine 0.68 (0.52-1.04) mg/dL Estimated GFR > 60 (>60) mL/min BUN/Creatinine Ratio 19.1 (6-22) Glucose 105 H (70-100) mg/dL Calcium 9.3 (8.4-10.2) mg/dL Magnesium 1.8 (1.6-2.3) mg/dL Total Bilirubin 0.4 (0.2-1.3) mg/dL AST 34 (14-36) IU/L ALT 59 H (<35) IU/L Alkaline Phosphatase 111 (38-126) U/L Total Protein 7.7 (6.3-8.2) g/dL Albumin 4.5 (3.5-5.0) g/dL Globulin 3.2 (1.7-4.1) g/dL Albumin/Globulin Ratio 1.4 (1.0-2.8) Urine Color Yellow Urine Appearance Clear Urine pH 6.0 (4.5-8.0) Ur Specific [place] 1.020 (1.000-1.035) Urine Protein Negative (Negative) Urine Glucose (UA) Negative (Negative) g/dL Urine Ketones Negative (NEGATIVE) Urine Occult Blood Negative (Negative) Urine Nitrate Negative (Negative) Urine Bilirubin Negative (NEGATIVE) Urine Urobilinogen 0.2 (0.2) E.U./dL Ur Leukocyte Esterase Negative (NEGATIVE) Urine RBC 0-1/hpf (0-5/HPF) Urine WBC 0-1/hpf (0-5/HPF) Ur Squamous Epith Cells 0-1 /hpf (0-5/HPF) Urine Bacteria None seen (None) Ur Culture Indicated? Cult not indicated MDM Narrative Medical decision making narrative: 42-year-old female history of preeclampsia 3 weeks presenting today with headache which has been ongoing for the last 3 weeks. She is no focal deficits. Blood pressure minimally elevated no evidence of preeclampsia now. Blood pressure has improved without any sort of intervention. She is given Toradol for which she says has helped significantly. She overall feels better ready go. She has no protein in her urine or evidence of UTI. Overall appears well no need for further workup. Discharge Plan Departure Patient Disposition: Home Clinical Impression: Migraine Instructions: DI for Migraine Activity Restrictions/Additional Instructions: *You have been diagnosed with migraine headache *What to do: At this time no evidence of preeclampsia or UTI. Please stay hydrated. *Continue to take medications as directed Tylenol 1000 mg every 6 hours if needed for [id number] pain Motrin 600 mg every 6 hours if needed for [id number] pain *Follow up with your primary care provider in 2-3 days or call [phone] *Return to ER if you should have increasing headache fever vomiting, numbness tingling or weakness or any new, worsening or concerning symptoms Prescriptions: No Action tramadol 50 MG tablet 50 mg PO Q6H PRN (Reason: Pain) Qty: 0 ibuprofen 800 mg Tablet 800 mg PO BID Rx Instructions: With food diazepam 5 mg Tablet 5 mg PO BID ondansetron 4 mg tablet,disintegrating 4 mg PO Q8H PRN (Reason: nausea and vomiting) Qty: 10 0RF dicyclomine 20 mg tablet 20 mg PO TID Qty: 20 0RF sucralfate 1 gram tablet 1 gram PO QAC Qty: 20 0RF Stand Alone Forms: Patient Portal/API
[2023-05-06 16:30] VITALS: BP 121/76; PULSE 83; RESP 14
[2023-05-06] MEDS: ONDANSETRON 4 MG/2 ML INJ IV (17:01)
[2023-05-06] MEDS: SODIUM CHLORIDE 0.9% 1,000 ML 1000 ML IV (17:01)
[2023-05-06] MEDS: KETOROLAC 30 MG/ML VIAL 15 MG IV (17:01)
[2023-05-06 17:18] VITALS: BP 115/80; PULSE 79; RESP 14; O2SAT 100
== END 2023-05-06 17:44 | disposition home or self-care (01) ==
PROVIDERS: Emergency Provider Emergency Medicine
DX: G43.909 Migraine, unspecified, not intractable, without status migrainosus (principal)
CPT/HCPCS: 36415; 80053; 81001; 83735; 85025; 96361; 96374; 96375; 99284; J1885; J2405